=== PATIENT | female | born 1940 | race Two or more races ===

== ENCOUNTER → 2021-12-09 | Outpatient (CLI) | payer OTHER ==
[2021-12-09 11:59] LABS: Basophils # (auto) 0 10 ^3/uL (0-0.2); Basophils % (auto) 0.4 % (0.0-2.0); Eosinophils # (auto) 0.1 10 ^3/uL (0-0.8); Eosinophils % (auto) 1.1 % (0.0-7.0); Hematocrit 43.3 % (36.0-46.0); Lymphocytes % (auto) 23.1 % (10.0-50.0); Mean Corpuscular Hemoglobin 29.1 pg (28.0-32.0); Mean Corpuscular Hgb Conc. 32.3 g/dL (32.0-36.0); Mean Corpuscular Volume 90.1 fL (80.0-100.0); Monocytes # (auto) 0.6 10 ^3/uL (0-1.3); Monocytes % (auto) 6.9 % (0.0-12.0); Neutrophils # (auto) 5.8 10 ^3/uL (1.6-8.6); Neutrophils % (auto) 68.5 % (37.0-80.0); Red Cell Distribution Width 14.5 % (11.8-14.3); White Blood Cell 8.5 10^3/uL (4.4-10.8)
[2021-12-09 12:14] LABS: Urine Bacteria FEW /hpf (None Seen); Urine Blood Negative /uL (Negative); Urine Specific Gravity 1.017 (1.001-1.035); Urine WBC 8 /hpf (0 - 5)
[2021-12-09 13:51] LABS: Cholesterol 159 mg/dL (< 200); HDL Cholesterol 61 mg/dL (40-59); LDL Cholesterol 96 mg/dL (< 100); Triglycerides 68 mg/dL (< 150)
== END | disposition home or self-care (01) ==
LOC: LAB 11:41
PROVIDERS: ATTEND Internal Medicine
DX: E11.42 Type 2 diabetes mellitus with diabetic polyneuropathy (principal); E55.9 Vitamin D deficiency, unspecified; E78.5 Hyperlipidemia, unspecified
CPT/HCPCS: 36415; 80061; 81001; 82306; 83036; 84439; 84443; 85025

== ENCOUNTER → 2022-03-14 | Outpatient (CLI) | payer OTHER ==
[2022-03-14 13:09] LABS: Potassium 3.9 mmol/L (3.5-5.1)
[2022-03-14 13:19] LABS: Albumin 3.5 g/dL (3.4-5.0); BUN/Creatinine Ratio 23.8; Bilirubin, Total 0.6 mg/dL (0.2-1.0); Calcium 9.1 mg/dL (8.5-10.1); Total Protein 7.1 g/dL (6.4-8.2)
[2022-03-14 15:20] LABS: Urine Bacteria NONE SEEN /hpf (None Seen); Urine Blood Negative /uL (Negative); Urine Mucus FEW (None Seen); Urine Specific Gravity 1.019 (1.001-1.035); Urine WBC 2 /hpf (0 - 5)
== END | disposition home or self-care (01) ==
LOC: LAB 10:21
PROVIDERS: ATTEND Internal Medicine
DX: E11.22 Type 2 diabetes mellitus with diabetic chronic kidney disease (principal); N18.9 Chronic kidney disease, unspecified
CPT/HCPCS: 36415; 80053; 81001; 83036

== ENCOUNTER 2022-05-27 13:14 | Day surgery (SDC) | payer OTHER ==
[2022-05-25 11:51] LABS: Basophils # (auto) 0 10 ^3/uL (0-0.2); Basophils % (auto) 0.7 % (0.0-2.0); Eosinophils # (auto) 0.2 10 ^3/uL (0-0.8); Eosinophils % (auto) 2.3 % (0.0-7.0); Hemoglobin 14.1 g/dL (12.2-16.2); Mean Corpuscular Hemoglobin 29.3 pg (28.0-32.0); Mean Corpuscular Hgb Conc. 32.9 g/dL (32.0-36.0); Mean Corpuscular Volume 88.9 fL (80.0-100.0); Monocytes # (auto) 0.5 10 ^3/uL (0-1.3); Monocytes % (auto) 6.9 % (0.0-12.0); Neutrophils # (auto) 3.9 10 ^3/uL (1.6-8.6); Neutrophils % (auto) 59.1 % (37.0-80.0); Red Blood Cells 4.83 10^6/uL (4.0-5.20); Red Cell Distribution Width 12.8 % (11.8-14.3); White Blood Cell 6.5 10^3/uL (4.4-10.8)
[2022-05-25 12:05] LABS: INR 1.03 (0.9-1.15)
[2022-05-25 12:38] LABS: Albumin 3.8 g/dL (3.4-5.0); Calcium 8.7 mg/dL (8.5-10.1); Potassium 3.5 mmol/L (3.5-5.1)
[2022-05-25 12:42] LABS: Bilirubin, Total 0.6 mg/dL (0.2-1.0); Total Protein 7.4 g/dL (6.4-8.2)
[~2022-05-27] VITALS: Ht 170.2 cm; Wt 99.8 kg
[~2022-05-27 13:14] MED LIST: ATO40T PO; LEVO25TA49 PO; LISI2.5T47 PO; MET50T PO
[2022-05-27] MEDS: MIDAZOLAM HCL 2MG/2ML 2ml VIAL (1mg/ml) ONE ×2 (15:26→15:29)
[2022-05-27] MEDS: diphenhdrAMINE HCL 50 MG/1 ML VL ONE ×2 (15:26→15:32)
[2022-05-27] MEDS: fentaNYL CITRATE 100 MCG/2 ML VL ONE ×2 (15:26→15:29)
[2022-05-27] MEDS ORDERED: METOPROLOL TARTRATE 1MG/1ML-5ML VIAL IV ONE ×2 (16:45→16:47)
[2022-05-27 17:08] VITALS: BP 159/76
== END 2022-05-27 17:38 | disposition home or self-care (01) ==
LOC: GI 13:14
PROVIDERS: ATTEND Internal Medicine Gastroenterology
DX: R19.4 Change in bowel habit (principal); K64.0 First degree hemorrhoids; K62.1 Rectal polyp; Z86.010 Personal history of colon polyps; I10 Essential (primary) hypertension; E11.51 Type 2 diabetes mellitus with diabetic peripheral angiopathy without gangrene; E11.40 Type 2 diabetes mellitus with diabetic neuropathy, unspecified; E78.5 Hyperlipidemia, unspecified; Z90.710 Acquired absence of both cervix and uterus; Z98.890 Other specified postprocedural states; Z79.899 Other long term (current) drug therapy; Z79.84 Long term (current) use of oral hypoglycemic drugs; Z20.822 Contact with and (suspected) exposure to COVID-19
CPT/HCPCS: 36415; 45380; 80053; 82962; 85025; 85610; 85730; 88305; J1200; J2250; J3010; J7030; U0003; 99152

== ENCOUNTER → 2022-12-05 | Outpatient (CLI) | payer OTHER | END | disposition home or self-care (01) | LOC: XYW 14:42 | PROVIDERS: ATTEND Internal Medicine | DX: I08.1 Rheumatic disorders of both mitral and tricuspid valves (principal); R00.2 Palpitations; R07.9 Chest pain, unspecified | CPT/HCPCS: 93306 ==

== ENCOUNTER → 2024-01-22 | Outpatient (CLI) | payer OTHER ==
[~2024-01-22] MED LIST changes: +AMLO1TAB21; -ATO40T PO; +ATOR-507 PO; +LEVO25TA2 PO; -LEVO25TA49 PO; +LEVO25TA9; +LOPRESSOR; +PREMARIN; +SIMV5TAB14
[2024-01-22 11:55] LABS: Chloride 111 mmol/L (98-107); Potassium 3.9 mmol/L (3.5-5.1); Sodium 144 mmol/L (136-145)
[2024-01-22 11:56] LABS: Anion Gap 5 (5-15); Calcium 9.7 mg/dL (8.7-10.4); Carbon Dioxide 28 mmol/L (20-31)
[2024-01-22 12:01] LABS: Blood Urea Nitrogen 20 mg/dL (9-23); Glucose 106 mg/dL (74-106)
== END | disposition home or self-care (01) ==
LOC: LAB 11:32
PROVIDERS: ATTEND Internal Medicine
DX: I12.9 Hypertensive chronic kidney disease with stage 1 through stage 4 chronic kidney disease, or unspecified chronic kidney disease (principal); E11.22 Type 2 diabetes mellitus with diabetic chronic kidney disease; N18.9 Chronic kidney disease, unspecified; E03.9 Hypothyroidism, unspecified; E78.5 Hyperlipidemia, unspecified
CPT/HCPCS: 36415; 80048

== ENCOUNTER → 2024-01-24 | Outpatient (CLI) | payer OTHER ==
[~2024-01-24] MED LIST changes: +BUPIVACAINE HCL 0.25% P/F 10 ML VIAL ONE; +IOHEXOL 300 MG/ML 100ML BOTTLE IJ ONE; +LIDOCAINE 2%HCL (LOCAL ANESTH.) INJ 10ml MDV ONE; +methylPREDNISolone ACETATE 80 MG/ML VL ONE
== END | disposition home or self-care (01) ==
LOC: XYW 10:37
PROVIDERS: ATTEND Orthopaedic Surgery Adult Reconstructive Orthopaedic Surgery
DX: M70.72 Other bursitis of hip, left hip (principal)
CPT/HCPCS: 20610; 77002; J1010; J2003; J3490; Q9967; 73501

== ENCOUNTER 2024-03-25 09:33 | Inpatient (IN) | payer OTHER ==
[~2024-03-25] VITALS: Ht 170.2 cm; Wt 101.0 kg
[~2024-03-25 09:33] MED LIST changes: -BUPIVACAINE HCL 0.25% P/F 10 ML VIAL ONE; -IOHEXOL 300 MG/ML 100ML BOTTLE IJ ONE; -LIDOCAINE 2%HCL (LOCAL ANESTH.) INJ 10ml MDV ONE; -methylPREDNISolone ACETATE 80 MG/ML VL ONE
[2024-03-25] MEDS: cefTRIAXone 1GM/50ML D5W 50 ML IV ONE (11:57)
[2024-03-25] MEDS: SODIUM CHLORIDE 0.9% 500 ML IV ONE (11:57)
[2024-03-25 12:03] LABS: Basophils # (auto) 0 10 ^3/uL (0-0.2); Basophils % (auto) 0.3 % (0.0-2.0); Eosinophils # (auto) 0.2 10 ^3/uL (0-0.8); Eosinophils % (auto) 2.5 % (0.0-7.0); Hemoglobin 14.5 g/dL (12.2-16.2); Lymphocytes % (auto) 26.2 % (10.0-50.0); Mean Corpuscular Hemoglobin 30.2 pg (28.0-32.0); Mean Corpuscular Hgb Conc. 32.9 g/dL (32.0-36.0); Mean Corpuscular Volume 91.9 fL (80.0-100.0); Monocytes # (auto) 0.4 10 ^3/uL (0-1.3); Monocytes % (auto) 4.5 % (0.0-12.0); Neutrophils # (auto) 5.1 10 ^3/uL (1.6-8.6); Neutrophils % (auto) 66.5 % (37.0-80.0); Platelet Count (auto) 205 10^3/uL (140-450); Red Blood Cells 4.79 10^6/uL (4.0-5.20); Red Cell Distribution Width 13.2 % (11.8-14.3); White Blood Cell 7.8 10^3/uL (4.4-10.8)
[2024-03-25 12:04] LABS: Urine Bacteria FEW /hpf (None Seen); Urine Blood Negative /uL (Negative); Urine Clarity Clear (Clear); Urine Color Yellow (Yellow); Urine Protein, UAD Negative (Negative); Urine Squamous Epithelial Cell FEW /hpf (<5); Urine Urobilinogen Normal (Negative); Urine WBC 3 /hpf (0 - 5)
--- NOTE | 2024-03-25 12:10 | ED.PDOC ---
Musculoskeletal HPI Comments 83 year old female presents to the ED with chief complaint of pre-op for ankle fracture. Patient reports that she had fractured her left ankle a couple weeks ago, following up with Dr. Byrd for treatment. Patient relays that she was advised by him to come to the ED today for admission pre-op of her ankle surgery to be performed tomorrow. Patient denies any additional symptoms at this time. Chief Complaint: Lower Extremity Time Seen by MD: 12:06 Primary Care Provider: CATERINA Greenwood Notes: Nurses Notes, Medications, Allergies Allergies: Coded Allergies: Diclofenac (Unverified Adverse Reaction, Unknown, 10/16/14) Isopropyl Alcohol (Unverified Adverse Reaction, Unknown, 10/16/14) Propylene Glycol (Unverified Adverse Reaction, Unknown, 10/16/14) Home Meds Reported Medications Simvastatin (Simvastatin) 20 Mg Tab, 20 MG PO QPM, TAB 10/16/14 Metoprolol Tartrate (Metoprolol Tartrate) 100 Mg Tab, 100 MG PO HS, TAB 10/16/14 Ibuprofen (Ibuprofen) 600 Mg Tab, 600 MG PO BIDP PRN for MODERATE PAIN, MG 10/16/14 Levothyroxine Sodium (Levothyroxine Sodium) 100 Mcg Tab, 100 MCG PO QAM for 30 Days, MCG 10/16/14 Information Source: Patient Mode of Arrival: Wheelchair Location: Left Extremity Location: Ankle Timing: Weeks Prehospital treatment: None Severity: Moderate Able to Move Extremity: No Bear Weight: Limited Pain: Mild Past Medical History PAST MEDICAL HISTORY: High Lipids, HTN, Thyroid Surgical History: Hysterectomy Surgical History (Other): Partial thyroidectomy, Lumpectomy [employer] History: Denies all [employer] Hx Family History Family History: Reviewed,noncontributory to illness Social History Smoker: Non-Smoker Alcohol: Denies ETOH Use Drugs: Denies Drug Use Lives In: Home Constitutional: denies: chills, diaphoresis, fatigue, fever, malaise, sweats, weakness, others EENTM: denies: blurred vision, double vision, ear bleeding, ear discharge, ear drainage, ear pain, ear ringing, eye pain, eye redness, hearing loss, mouth pain, mouth swelling, nasal discharge, nose bleeding, nose congestion, nose pain, photophobia, tearing, throat pain, throat swelling, voice changes, others Respiratory: denies: cough, hemoptysis, orthopnea, SOB at rest, shortness of b reath, SOB with excertion, stridor, wheezing, others Cardiovascular: denies: chest pain, dizzy spells, diaphoresis, Dyspnea on exertion, edema, irregular heart beat, left arm pain, lightheadedness, palpitations, PND, syncope, others Gastrointestinal: denies: abdomen distended, abdominal pain, blood streaked bowels, constipated, diarrhea, dysphagia, difficulty swallowing, hematemesis, melena, nausea, poor appetite, poor fluid intake, rectal bleeding, rectal pain, vomiting, others Genitourinary: denies: abnormal vagina bleeding, burning, dyspareunia, dysuria, flank pain, frequency, hematuria, incontinence, pain, , vagina discharge, urgency, others Neurological: denies: dizziness, fainting, headache, left sided numbness, left sided weakness, numbness, paresthesia, pre-existing deficit, right sided numbness, right sided weakness, seizure, speech problems, tingling, tremors, weakness, others Musculoskeletal: reports: others (Left ankle fracture); denies: back pain, gout, joint pain, joint swelling, muscle pain, muscle stiffness, neck pain Integumetry: denies: bruises, change in color, change in hair/nails, dryness, laceration, lesions, lumps, rash, wounds, others Allergic/Immunocompromised: denies: Difficulty Healing, Frequent Infections, Hives, Itching, others Hematologic/Lymphatic: denies: anemia, blood clots, easy bleeding, easy bruising, swollen glands, others Endocrine: denies: excessive hunger, excessive sweating, excessive thirst, excessive urination, flushing, intolerance to cold, intolerance to heat, unexplained weight gain, unexplained weight loss, others Psychiatric: denies: anxiety, bipolar disorder, depression, hopeless, panic disorder, schizophrenia, sleepless, suicidal, others All Other Systems: Reviewed and Negative Physical Exam General Appearance: No Apparent Distress, Obese HEENT: Other (Moist mucous membranes) Neck: Full Range of Motion, Normal Inspection Respiratory: Lungs Clear, No Accessory Muscle Use, No Respiratory Distress, Normal Breath Sounds Cardiovascular: No Edema, No JVD, Regular Rate/Rhythm Breast Exam: Deferred Gastrointestinal: Non Tender, Soft Genitalia: Deferred Pelvic: Deferred Rectal: Deferred Extremities: Other (Ortho boot in place left lower extremity) Neurologic: Alert (Oriented x4), Other (Moves all extremities) Cerebellar Function: NOT DONE Reflexes: NOT DONE Skin: Dry, Normal Color, Warm Lymphatic: NOT DONE Was a procedure done? Was a procedure done?: No Differential Diagnosis EXT Differential Diagnosis: Fracture Other Differential Diagnosis Electrolyte imbalance, cardiac disease, renal disease, among others X-Ray, Labs, Meds, VS Vital Signs Date Time Temp Pulse Resp B/P (MAP) Pulse Ox O2 Delivery O2 Flow Rate FiO2 03/25/24 09:56 98.6 82 18 142/68 (92) 95 Lab Test 03/25/24 12:00 03/25/24 11:17 Range/Units White Blood Count 7.8 4.4-10.8 10^3/uL Red Blood Count 4.79 4.0-5.20 10^6/uL Hemoglobin 14.5 12.2-16.2 g/dL Hematocrit 44.0 36.0-46.0 % Mean Corpuscular Volume 91.9 80.0-100.0 fL Mean Corpuscular Hemoglobin 30.2 28.0-32.0 pg Mean Corpuscular Hemoglobin Concent 32.9 32.0-36.0 g/dL Red Cell Distribution Width 13.2 11.8-14.3 % Platelet Count 205 140-450 10^3/uL Mean Platelet Volume 9.2 6.9-10.8 fL Neutrophils (%) (Auto) 66.5 37.0-80.0 % Lymphocytes (%) (Auto) 26.2 10.0-50.0 % Monocytes (%) (Auto) 4.5 0.0-12.0 % Eosinophils (%) (Auto) 2.5 0.0-7.0 % Basophils (%) (Auto) 0.3 0.0-2.0 % Neutrophils # (Auto) 5.1 1.6-8.6 10 ^3/uL Lymphocytes # (Auto) 2.0 0.4-5.4 10 ^3/uL Monocytes # (Auto) 0.4 0-1.3 10 ^3/uL Eosinophils # (Auto) 0.2 0-0.8 10 ^3/uL Basophils # (Auto) 0 0-0.2 10 ^3/uL Nucleated Red Blood Cells 0.0 % Prothrombin Time 11.5 9.3-11.8 sec Prothrombin Time INR 1.09 0.9-1.15 Activated Partial Thromboplast Time 28.5 24.5-34.5 SEC Sodium Level 144 136-145 mmol/L Potassium Level 3.8 3.5-5.1 mmol/L Chloride Level 109 H 98-107 mmol/L Carbon Dioxide Level 28 20-31 mmol/L Anion Gap 7 5-15 Blood Urea Nitrogen 10 9-23 mg/dL Creatinine 0.84 0.550-1.02 mg/dL Glomerular Filtration Rate Calc 69 >90 mL/min BUN/Creatinine Ratio 11.9 10.0-20.0 Serum Glucose 129 H 74-106 mg/dL Calcium Level 10.0 8.7-10.4 mg/dL Total Bilirubin 0.6 0.2-1.0 mg/dL Aspartate Amino Transferase (AST) 27 13-40 U/L Alanine Aminotransferase (ALT) 25 7-40 U/L Alkaline Phosphatase 104 46-116 U/L Total Protein 7.5 5.7-8.2 g/dL Albumin 4.7 3.2-4.8 g/dL Urine Color Yellow Yellow Urine Clarity Clear Clear Urine pH 5.0 5.0-9.0 Urine Specific [place] 1.020 1.001-1.035 Urine Protein Negative Negative Urine Ketones Trace Negative Urine Blood Negative Negative /uL Urine Nitrite Negative Negative Urine Bilirubin Negative Negative Urine Urobilinogen Normal Negative mg/dL Urine Leukocyte Esterase 2+ Negative /uL Urine RBC 1 0 - 4 /hpf Urine WBC 3 0 - 5 /hpf Urine Squamous Epithelial Cells Few <5 /hpf Urine Bacteria Few H None Seen /hpf Urine Glucose Normal Normal mg/dL Current Medications Medications (Trade) Dose Ordered Sig/Alvarez Route Start Time Stop Time Status Last Admin Sodium Chloride 500 ml @ 500 mls/hr Q1H ONCE IV 03/25/24 11:00 03/25/24 14:24 DC 03/25/24 11:57 Ceftriaxone Sodium 50 ml @ 100 mls/hr ONCE ONCE IV 03/25/24 11:00 03/25/24 14:24 DC 03/25/24 11:57 PROCEDURE(s): CXRP - CHEST PORTABLE REASON: pre-op ORDER NUMBER(s): [id number], ACCESSION NUMBER(s): [id number] Chest x-ray Technique AP portable HISTORY: pre-op Comparison: None FINDINGS: Heart size is normal. Aorta is tortuous. No infiltrates or effusions. IMPRESSION: 1. No acute cardiopulmonary pathology X-Ray, Labs, Meds, VS Comment 83-year-old female with a history of hypertension, hyperlipidemia, diabetes and thyroid disease presenting for preop clearance and admission for left lower extremity surgery tomorrow. Vitals remarkable for BP 142/68 Exam remarkable for left lower extremity orthopedic boot in place. Left lower extremity appears neurovascularly intact. Rhythm strip independently interpreted by me: Sinus rhythm, rate 82, no ectopy. Chest x-ray unremarkable CBC, CMP, coag panel and urinalysis unremarkable for any abnormality of acute significance Cardiology consultation placed for preop clearance. Patient did not require any acute treatment in the ED. Plan is to admit the patient for ongoing preop clearance for surgery tomorrow. Time of 1ST Reevaluation: 13:06 Reevaluation 1ST: Unchanged Patient Education/Counseling: Diagnosis, Treatment Family Education/Counseling: No Family Present Departure 1 Departure Time of Disposition: 14:21 Impression: Primary Impression: Preoperative clearance Disposition: ADMITTED INPATIENT Admit to: Med Surg Condition: Stable Critical Care Note Critical Care Time?: No Stability Stability form required: No Heart Score Heart Score: Heart Score Response (Comments) Value History N/A 0 EKG N/A 0 Age N/A 0 Risk Factors N/A 0 Troponin N/A 0 Total 0 I personally scribed for BREONNA ARELLANO MD ([email or web address]) on 03/25/24 at 12:10. Electronically submitted by Avinash Bo ([email or web address]). BREONNA ARELLANO MD Mar 25, 2024 12:10
[2024-03-25 12:17] LABS: INR 1.09 (0.9-1.15); Partial Thromboplastin Time 28.5 SEC (24.5-34.5); Prothrombin Time 11.5 sec (9.3-11.8)
[2024-03-25 12:22] LABS: Alanine Aminotransferase 25 U/L (7-40); Albumin 4.7 g/dL (3.2-4.8); Alkaline Phosphatase 104 U/L (46-116); Anion Gap 7 (5-15); Aspartate Aminotransferase 27 U/L (13-40); BUN/Creatinine Ratio 11.9 (10.0-20.0); Blood Urea Nitrogen 10 mg/dL (9-23); Carbon Dioxide 28 mmol/L (20-31); Potassium 3.8 mmol/L (3.5-5.1); Sodium 144 mmol/L (136-145)
[2024-03-25 12:23] LABS: Bilirubin, Total 0.6 mg/dL (0.2-1.0); Total Protein 7.5 g/dL (5.7-8.2)
[2024-03-25 12:26] LABS: Chloride 109 mmol/L (98-107); Glucose 129 mg/dL (74-106)
--- NOTE | 2024-03-25 14:04 | DVH ---
Chest x-ray Technique AP portable HISTORY: pre-op Comparison: None FINDINGS: Heart size is normal. Aorta is tortuous. No infiltrates or effusions. IMPRESSION: 1. No acute cardiopulmonary pathology
[2024-03-25] MEDS ORDERED: MORPHINE SULFATE INJ 2 MG/ml SYRG IV PRN (14:30)
[2024-03-25] MEDS ORDERED: DOCUSATE SOD 100 MG CAP PO PRN (14:30)
[2024-03-25] MEDS ORDERED: HYDROcodone-ACET 5/325MG TAB PO PRN (14:30)
[2024-03-25] MEDS ORDERED: DEXTROSE (50%) 50ML SYRG IV PRN (14:30)
[2024-03-25] MEDS ORDERED: ACETAMINOPHEN 325 MG TAB PO PRN (14:30)
[2024-03-25] MEDS ORDERED: MAALOX PLUS or MAALOX 30 ML PO PRN (14:30)
--- NOTE | 2024-03-25 14:33 | DVHHP2 ---
History of Present Illness Reason for Visit: leg pain History of Present Illness A 83-year-old morbidly obese patient with hypertension hyperlipidemia thyroid disorder comes to the ED with complaints of pain patient has a left ankle fracture and was told to come here for preop evaluation and admission for the management of ankle surgery that is supposed to be performed inpatient tomorrow patient will be admitted for further evaluation and management in preop surgery Renal/: UTI Review of Systems Constitutional: Yes: Weakness; No: Fever, Chills, Sweats, Malaise, Other Eyes: No: Pain, Vision change, Conjunctivae inflammation, Eyelid inflammation, Other, Redness ENT: No: Ear pain, Ear discharge, Nose pain, Nose discharge, Nose congestion, Mouth pain, Mouth swelling, Throat pain, Throat swelling, Other Respiratory: No: Cough, Dry, Shortness of breath, SOB with excertion, Wheezing, Hemoptysis, Pleuritic Pain, Sputum, Wheezing, Other Cardiovascular: No: Chest Pain, Palpitations, Orthopnea, Paroxysmal Noc. Dyspnea, Edema, Lt Headedness, Other Gastrointestinal: No: Nausea, Vomiting, Abdominal Pain, Diarrhea, Constipation, Melena, Hematochezia, Other Genitourinary: No Dysuria, No Frequency, No Incontinence, No Hematuria, No Retention, No Other Musculoskeletal: leg pain; No: other, neck pain, shoulder pain, arm pain, back pain, hand pain, foot pain Skin: No: Rash, Lesions, Jaundice, Bruising, Other Neurological: No: Weakness, Numbness, Incoordination, Change in speech, Confusion, Seizures, Other Allergies: Coded Allergies: Diclofenac (Unverified Adverse Reaction, Unknown, 10/16/14) Isopropyl Alcohol (Unverified Adverse Reaction, Unknown, 10/16/14) Propylene Glycol (Unverified Adverse Reaction, Unknown, 10/16/14) Exam Vital Signs Vital Signs Date Time Temp Pulse Resp B/P (MAP) Pulse Ox O2 Delivery O2 Flow Rate FiO2 03/25/24 09:56 98.6 82 18 142/68 (92) 95 General Appearance: Alert, Oriented X3, moderate distress HEENT: Atraumatic, PERRLA Respiratory: Clear to auscultation, Normal air movement Cardiovascular: Regular rate, Normal S1, Normal S2 Abdominal: Normal bowel sounds, Soft, No tenderness Extremities: No clubbing, No cyanosis, No edema Skin: No rashes, No breakdown, No significant lesion Neuro: Normal gait, Normal speech, Strength at 5/5 X4 ext Psych/Mental Status: Mood NL Labs/Xrays Labs Test 03/25/24 12:00 03/25/24 11:17 Range/Units White Blood Count 7.8 4.4-10.8 10^3/uL Red Blood Count 4.79 4.0-5.20 10^6/uL Hemoglobin 14.5 12.2-16.2 g/dL Hematocrit 44.0 36.0-46.0 % Mean Corpuscular Volume 91.9 80.0-100.0 fL Mean Corpuscular Hemoglobin 30.2 28.0-32.0 pg Mean Corpuscular Hemoglobin Concent 32.9 32.0-36.0 g/dL Red Cell Distribution Width 13.2 11.8-14.3 % Platelet Count 205 140-450 10^3/uL Mean Platelet Volume 9.2 6.9-10.8 fL Neutrophils (%) (Auto) 66.5 37.0-80.0 % Lymphocytes (%) (Auto) 26.2 10.0-50.0 % Monocytes (%) (Auto) 4.5 0.0-12.0 % Eosinophils (%) (Auto) 2.5 0.0-7.0 % Basophils (%) (Auto) 0.3 0.0-2.0 % Neutrophils # (Auto) 5.1 1.6-8.6 10 ^3/uL Lymphocytes # (Auto) 2.0 0.4-5.4 10 ^3/uL Monocytes # (Auto) 0.4 0-1.3 10 ^3/uL Eosinophils # (Auto) 0.2 0-0.8 10 ^3/uL Basophils # (Auto) 0 0-0.2 10 ^3/uL Nucleated Red Blood Cells 0.0 % Prothrombin Time 11.5 9.3-11.8 sec Prothrombin Time INR 1.09 0.9-1.15 Activated Partial Thromboplast Time 28.5 24.5-34.5 SEC Sodium Level 144 136-145 mmol/L Potassium Level 3.8 3.5-5.1 mmol/L Chloride Level 109 H 98-107 mmol/L Carbon Dioxide Level 28 20-31 mmol/L Anion Gap 7 5-15 Blood Urea Nitrogen 10 9-23 mg/dL Creatinine 0.84 0.550-1.02 mg/dL Glomerular Filtration Rate Calc 69 >90 mL/min BUN/Creatinine Ratio 11.9 10.0-20.0 Serum Glucose 129 H 74-106 mg/dL Calcium Level 10.0 8.7-10.4 mg/dL Total Bilirubin 0.6 0.2-1.0 mg/dL Aspartate Amino Transferase (AST) 27 13-40 U/L Alanine Aminotransferase (ALT) 25 7-40 U/L Alkaline Phosphatase 104 46-116 U/L Total Protein 7.5 5.7-8.2 g/dL Albumin 4.7 3.2-4.8 g/dL Urine Color Yellow Yellow Urine Clarity Clear Clear Urine pH 5.0 5.0-9.0 Urine Specific [place] 1.020 1.001-1.035 Urine Protein Negative Negative Urine Ketones Trace Negative Urine Blood Negative Negative /uL Urine Nitrite Negative Negative Urine Bilirubin Negative Negative Urine Urobilinogen Normal Negative mg/dL Urine Leukocyte Esterase 2+ Negative /uL Urine RBC 1 0 - 4 /hpf Urine WBC 3 0 - 5 /hpf Urine Squamous Epithelial Cells Few <5 /hpf Urine Bacteria Few H None Seen /hpf Urine Glucose Normal Normal mg/dL Assessment/Plan Assessment/Plan Admit to [facility] Left ankle fracture NPO after midnight P.r.n. pain medications History of hypertension hyperlipidemia and thyroid disorder continue with home medications Ortho evaluation IV antibiotics for UTI Plan discussed with: Patient Problem List: (1) Preoperative clearance Date of Service: Mar 25, 2024 Billing Provider: KEVEN PULLIAM MD Common Visit Codes: [id number] INP/OBS CARE (HIGH) KEVEN PULLIAM MD Mar 25, 2024 14:33
--- NOTE | 2024-03-25 15:46 | DVH ---
CLINICAL INDICATION: eval fx TECHNIQUE: XY L ANKLE 2 VIEW XRAY Comparison: None FINDINGS/IMPRESSION: : Mildly displaced fracture of the distal fibula. Diffuse soft-tissue swelling and edema.
[2024-03-25] MEDS ORDERED: PATIENTS OWN MEDICATION (Simvastatin 20 MG) PO SCH (18:00)
[2024-03-25 19:40] VITALS: BP 146/67; PULSE 59; RESP 20; TEMP 98.1; O2SAT 98
[2024-03-25] MEDS: ACCU-CHEK COMFORT CURVE STRIP VI SCH (20:00)
[2024-03-25] MEDS: InsuLIN REG 1unit/0.01ml Soln (100units/ml) SC SCH (20:00)
[2024-03-25] MEDS: ATORVASTATIN 20 MG TAB PO SCH (22:00)
[2024-03-25] MEDS: PATIENTS OWN MEDICATION (Metoprolol Tartrate 100 MG) PO SCH (22:00)
[2024-03-26] VITALS (33 sets, daily range): BP systolic 74–152; BP diastolic 37–82; PULSE 57–143; RESP 8–21; TEMP 97.8–98.6; O2SAT 94–99
[2024-03-26] MEDS: SODIUM CHLORIDE 0.9% 1,000 ML IV SCH (04:17)
[2024-03-26] MEDS: LEVOTHYROXINE SODIUM 100 MCG TAB PO SCH (06:08)
[2024-03-26 06:49] LABS: Basophils # (auto) 0 10 ^3/uL (0-0.2); Basophils % (auto) 0.5 % (0.0-2.0); Eosinophils # (auto) 0.2 10 ^3/uL (0-0.8); Eosinophils % (auto) 2.9 % (0.0-7.0); Hematocrit 36.8 % (36.0-46.0); Hemoglobin 12.4 g/dL (12.2-16.2); Lymphocytes # (auto) 2.1 10 ^3/uL (0.4-5.4); Mean Corpuscular Hemoglobin 30.6 pg (28.0-32.0); Mean Corpuscular Hgb Conc. 33.8 g/dL (32.0-36.0); Mean Corpuscular Volume 90.5 fL (80.0-100.0); Monocytes # (auto) 0.5 10 ^3/uL (0-1.3); Monocytes % (auto) 6.9 % (0.0-12.0); Neutrophils % (auto) 62.7 % (37.0-80.0); Platelet Count (auto) 182 10^3/uL (140-450); Red Blood Cells 4.06 10^6/uL (4.0-5.20); Red Cell Distribution Width 13.1 % (11.8-14.3); White Blood Cell 7.9 10^3/uL (4.4-10.8)
[2024-03-26 06:56] LABS: Calcium 9.4 mg/dL (8.7-10.4); Potassium 3.9 mmol/L (3.5-5.1); Sodium 145 mmol/L (136-145)
[2024-03-26 06:58] LABS: Anion Gap 8 (5-15); Carbon Dioxide 27 mmol/L (20-31)
[2024-03-26 07:03] LABS: BUN/Creatinine Ratio 17.3 (10.0-20.0); Blood Urea Nitrogen 13 mg/dL (9-23)
[2024-03-26 07:04] LABS: Chloride 110 mmol/L (98-107); Glucose 107 mg/dL (74-106)
[2024-03-26] MEDS: ROPIVACAINE 0.5% (5MG/ML) 20ML AMPULE IJ ONE (09:40)
[2024-03-26] MEDS ORDERED: fentaNYL CITRATE 100 MCG/2 ML VL ONE (09:41)
[2024-03-26] MEDS ORDERED: MIDAZOLAM HCL 2MG/2ML 2ml VIAL (1mg/ml) ONE (09:42)
[2024-03-26] MEDS ORDERED: PROPOFOL 10 MG/ML 20 ML IV ONE (09:44)
[2024-03-26] MEDS: ceFAZolin 2 GM/D5W100ml 100 ML IV ONE (09:45)
[2024-03-26] MEDS ORDERED: PHENYLEPHRINE HCL 10 MG/ML VL ONE (09:46)
--- NOTE | 2024-03-26 09:55 | DVHHP2 ---
History Chief Complaint: 83F, left ankle pain, swelling , inability to bear weight Present Illness(Onset/Duration 03/02/24, slip fall in bathroom, painleft ankle, inability to bear weight, presentation to [facility] ER, XR consistent with left ankle bimalleolar fracture Past Surgical History hysterectomy left eye surgery, left breast lumpectomy Medications lisinopril, chol meds, metoprolol, levothyroxine Physical Exam Skin intact Chest and Lungs CTA B Heart RRR neg MRG Abdomen NBS ND NT Extremities Left ankle moderate swelling, NVI, ROM stabiliolty not assessed due to fracture Vital Signs Vital Signs Date Time Temp Pulse Resp B/P (MAP) Pulse Ox O2 Delivery O2 Flow Rate FiO2 03/26/24 08:30 97.9 71 19 112/65 (81) 97 97.9 03/26/24 01:26 Room Air* 0 21 Impressions/Description Left ankle bimalleolar fracture dislocation Plan pre op clearance by anesthsiology surgery , ORIF left ankle bimalleolar fracture ANNA HUTCHINS MD Mar 26, 2024 09:55
[2024-03-26] MEDS ORDERED: METOPROLOL TARTRATE 50 MG TAB PO SCH ×2 (10:00)
[2024-03-26] MEDS: cefTRIAXone 1GM/50ML D5W 50 ML IV SCH (10:00)
[2024-03-26] MEDS: NOREPINEPHRINE 8 MG/250ML KIT 250 ML IV ONE (10:42)
--- NOTE | 2024-03-26 11:11 | DVHINCON2 ---
Date Seen: Mar 26, 2024 Referring Physician MD Stephen Reason for Consultation Hemodynamic instability History of Present Illness This is an 83-year-old female who presented to the emergency room with a chief complaint of left ankle pain. At time of assessment, the patient was found chacho wsy and somnolent. Information obtained from records which indicate the patient fracture her left ankle approximately two weeks ago and presented to this facility for repair. Preoperatively she underwent multiple 12-lead electrocardiograms revealing a sinus rhythm suggestive of left ventricular hypertrophy and left atrial enlargement. She also underwent a chest x-ray revealing no acute cardiopulmonary pathology. Intraoperatively she received spinal anesthesia with subsequent hemodynamic instability including hypotension and tachycardia with Cardiology called STAT for consultation. Upon arrival, she was found max out on a Levophed drip with stable MAP and an atrial fibrillation rhythm with rapid ventricular rate up to the 150s bpm. Significant medical h istory includes hypertension, dyslipidemia, thyroid disease, and obesity. Past Medical History Past medical history reviewed. No other significant than mentioned above. Past Surgical History Hysterectomy Unspecified lumpectomy Partial thyroidectomy Left eye Family History Family history reviewed. Social History Denies the use of illicit drugs, alcohol, or tobacco use. Home Meds Reported Medications Atorvastatin Calcium (Lipitor) 40 Mg Tab, 40 MG PO DAILY, TAB 05/26/22 Metoprolol Tartrate (LOPRESSOR TABLET) 50 Mg Tb, 50 MG PO BID, TAB 05/26/22 Lisinopril (Lisinopril) 2.5 Mg Tab, 2.5 MG PO DAILY, TAB 05/26/22 Levothyroxine Sodium (Synthroid) 25 Mcg Tab, 100 MCG PO DAILY, TAB 05/26/22 Amlodipine Besylate (Amlodipine Besylate) 2.5 Mg Tab 05/15/10 Simvastatin (Simvastatin) 5 Mg Tab 05/14/10 [Premarin] No Conflict Check 05/14/10 Levothyroxine Sodium (Levothroid) 25 Mcg Tab 05/14/10 [Lopressor] No Conflict Check 05/14/10 Home Meds Home medications reviewed. Current Medications Current Medications Medications (Trade) Dose Ordered Sig/Alvarez Route PRN Reason Start Time Stop Time Status Last Admin Levothyroxine Sodium (Synthroid Tablet) 100 mcg QAM PO 03/26/24 07:00 Patient Own Medication 100 mg HS PO 03/25/24 22:00 Patient Own Medication 20 mg QPM PO 03/25/24 18:00 UNV Ceftriaxone Sodium 50 ml @ 100 mls/hr DAILY IV 03/26/24 10:00 Diagnostic Test (Pha) (Accu-Chek Comfort Curve T) 1 strip IQ4HR 03/25/24 16:00 03/26/24 08:00 Insulin Human Regular (InsuLIN R) IQ4HR SC 03/25/24 16:00 Dextrose 50 ml UD PRN IV Blood Sugar LESS THAN 60 03/25/24 14:30 Sodium Chloride 1,000 ml @ 60 mls/hr [id number] IV 03/25/24 14:30 03/26/24 04:17 Al Hydrox/Mg Hydrox/Simethicone (Maalox Plus) 30 ml Q6HP PRN PO FOR STOMACH DISTRESS 03/25/24 14:30 Docusate Sodium (Colace Capsule) 100 mg BIDPRN PRN PO FOR CONSTIPATION 03/25/24 14:30 Acetaminophen (Tylenol Tablet) 650 mg Q6HP PRN PO PAIN SCALE 1-3 OR TEMP>100.4 03/25/24 14:30 Acetaminophen/ Hydrocodone Bitart ([place] 5/325MG Tab) 1 tab Q4HP PRN PO MODERATE PAIN (4-6 PAIN SCALE) 03/25/24 14:30 Ondansetron HCl (Zofran) 4 mg Q4HP PRN IV NAUSEA / VOMITING 03/25/24 14:30 Morphine Sulfate 2 mg Q4HPRN PRN IV SEVERE PAIN (7-10 PAIN SCALE) 03/25/24 14:30 Metoprolol Tartrate (Lopressor Tablet) 100 mg DAILY PO 03/26/24 10:00 Cancel Atorvastatin Calcium (Lipitor) 10 mg HS PO 03/25/24 22:00 Metoprolol Tartrate (Lopressor Tablet) 100 mg DAILY PO 03/26/24 10:00 Hold Review of Systems Constitutional: No symptom reported Ears, Nose, & Throat: No symptom reported Eyes: No symptom reported Neurological: No symptoms reported Pulmonary/Respiratory: No symptom reported Cardiovascular: No symptom reported Gastrointestinal: No symptom reported Genitourinary: No symptom reported Musculoskeletal: Left ankle pain Skin: No symptom reported Psychiatric: No symptom reported Endocrine: No symptom reported Hemotologic/Lymphatic: No symptom reported Vital Signs Vital Signs Date Time Temp Pulse Resp B/P (MAP) Pulse Ox O2 Delivery O2 Flow Rate FiO2 03/26/24 08:30 97.9 71 19 112/65 (81) 97 97.9 03/26/24 08:10 Room Air* 0 21 Physical Exam General Appearance: Drowsy, somnolent. Obese. In no acute distress Head Exam: Normal inspection Neck Exam: Normal inspection. Normal alignment Pulmonary/Respiratory: Clear bilateral breath sounds. O2 via simple mask Cardiovascular/Chest: Irregularly irregular rate and rhythm. AFib with RVR up to 150s bpm. No murmurs. No JVD. Peripheral Pulses: 2+ Radial (R). 2+ Radial (L). 2+ Pedal (R). 2+ Pedal (L) Abdominal Exam: Normal bowel sounds. Soft. Ankle Exam: Negative ankle edema Lower extremities: Negative lower extremity edema. Left ankle edema Neuro/Mental Status: Received recent spinal anesthesia. Drowsy, somnolent Thoughts/Psych: Unable to assess at this time Appearance: In no acute distress Skin Exam: Normal inspection. Normal color. Warm. Dry Labs/Diagnostic Data Labs Test 03/26/24 08:50 03/26/24 05:41 03/25/24 12:00 03/25/24 11:17 Range/Units POC Glucose 110 H 70-106 mg/dl White Blood Count 7.9 4.4-10.8 10^3/uL Red Blood Count 4.06 4.0-5.20 10^6/uL Hemoglobin 12.4 12.2-16.2 g/dL Hematocrit 36.8 # 36.0-46.0 % Mean Corpuscular Volume 90.5 80.0-100.0 fL Mean Corpuscular Hemoglobin 30.6 28.0-32.0 pg Mean Corpuscular Hemoglobin Concent 33.8 32.0-36.0 g/dL Red Cell Distribution Width 13.1 11.8-14.3 % Platelet Count 182 140-450 10^3/uL Mean Platelet Volume 9.4 6.9-10.8 fL Neutrophils (%) (Auto) 62.7 37.0-80.0 % Lymphocytes (%) (Auto) 27.0 10.0-50.0 % Monocytes (%) (Auto) 6.9 0.0-12.0 % Eosinophils (%) (Auto) 2.9 0.0-7.0 % Basophils (%) (Auto) 0.5 0.0-2.0 % Neutrophils # (Auto) 5.0 1.6-8.6 10 ^3/uL Lymphocytes # (Auto) 2.1 0.4-5.4 10 ^3/uL Monocytes # (Auto) 0.5 0-1.3 10 ^3/uL Eosinophils # (Auto) 0.2 0-0.8 10 ^3/uL Basophils # (Auto) 0 0-0.2 10 ^3/uL Nucleated Red Blood Cells 0.0 % Sodium Level 145 136-145 mmol/L Potassium Level 3.9 3.5-5.1 mmol/L Chloride Level 110 H 98-107 mmol/L Carbon Dioxide Level 27 20-31 mmol/L Anion Gap 8 5-15 Blood Urea Nitrogen 13 9-23 mg/dL Creatinine 0.75 0.550-1.02 mg/dL Glomerular Filtration Rate Calc 79 >90 mL/min BUN/Creatinine Ratio 17.3 10.0-20.0 Serum Glucose 107 H 74-106 mg/dL Calcium Level 9.4 8.7-10.4 mg/dL Prothrombin Time 11.5 9.3-11.8 sec Prothrombin Time INR 1.09 0.9-1.15 Activated Partial Thromboplast Time 28.5 24.5-34.5 SEC Total Bilirubin 0.6 0.2-1.0 mg/dL Aspartate Amino Transferase (AST) 27 13-40 U/L Alanine Aminotransferase (ALT) 25 7-40 U/L Alkaline Phosphatase 104 46-116 U/L Total Protein 7.5 5.7-8.2 g/dL Albumin 4.7 3.2-4.8 g/dL Urine Color Yellow Yellow Urine Clarity Clear Clear Urine pH 5.0 5.0-9.0 Urine Specific [place] 1.020 1.001-1.035 Urine Protein Negative Negative Urine Ketones Trace Negative Urine Blood Negative Negative /uL Urine Nitrite Negative Negative Urine Bilirubin Negative Negative Urine Urobilinogen Normal Negative mg/dL Urine Leukocyte Esterase 2+ Negative /uL Urine RBC 1 0 - 4 /hpf Urine WBC 3 0 - 5 /hpf Urine Squamous Epithelial Cells Few <5 /hpf Urine Bacteria Few H None Seen /hpf Urine Glucose Normal Normal mg/dL Assessment Intraoperative atrial fibrillation with RVR, new onset Rule out structural heart disease Hypertension Dyslipidemia Thyroid disease Obesity Plan/Recommendation (Dr. Zacarias) The patient developed intraoperative new onset atrial fibrillation with rapid ventricular rate for which she will be initiated on an amiodarone drip per pharmacy protocol. Initiate therapeutic Lovenox, ?[id number] Score ?HAS-BLED Score. Continue vasopressors for hemodynamic support and titrate down as tolerated. The patient is scheduled for a transthoracic echocardiogram to rule out structural heart disease. Follow-up on magnesium and TSH levels. Monitor ECG changes closely and notify. Thank you for allowing us to participate in this patient's care. Please call if you have any questions or concerns. Critical care time: 40 min. This medical document was created using an electronic medical record system with voice recognition software and computerized dictation system. Although this document has been carefully reviewed, there might still be some phonetic and typographical errors. Occasional wrong-word or ``sound-alike substitutions may have occurred due to the inherent limitations of voice recognition software. These areas are purely typographical due to imperfections of the software programs and do not reflect any compromise in the patient's medical care. Please read the chart carefully and recognize, using context, where these substitutions have occurred. Plan discussed with: Other Date of Service: Mar 26, 2024 Billing Provider: LUNA ZACARIAS MD Cardiology Common Codes: [id number] CARE 30-74 MIN PETRA VALDES [facility] Mar 26, 2024 11:11
[2024-03-26] MEDS: PHENYLEPHRINE IV 250 ML IV SCH (11:15)
[2024-03-26 11:17] LABS: Base Excess -3.8 mmol/L (-2.0-3.0)
[2024-03-26] MEDS: AMIODARONE BOLUS KIT 100 ML IV ONE (11:55)
[2024-03-26] MEDS: ENOXAPARIN SOD 100 MG/1 ML SYRINGE SC ONE (12:00)
[2024-03-26] MEDS: AMIODARONE 450mg/250ml AE 250 ML IV SCH ×2 (12:05→21:35)
[2024-03-26] MEDS: NOREPINEPHRINE 8 MG/250ML KIT 250 ML IV SCH (13:15)
[2024-03-26 14:26] LABS: Base Excess -2.2 mmol/L (-2.0-3.0)
[2024-03-26] MEDS ORDERED: ePHEDrine SULFATE 50 MG/ML AMP IV ONE (17:50)
--- NOTE | 2024-03-26 18:43 | DVHPN2 ---
Subjective seen in bed and going to the OR today Changes from previous H/P or p: No Changes Eyes: No Pain, No Vision change, No Conjunctivae inflammation, No Eyelid inflammation, No Other, No Redness ENT: No Ear pain, No Ear discharge, No Nose pain, No Nose discharge, No Nose congestion, No Mouth pain, No Mouth swelling, No Throat pain, No Throat swelling, No Other Cardiovascular: No Chest Pain, No Palpitations, No Orthopnea, No Paroxysmal Noc. Dyspnea, No Edema, No Lt Headedness, No Other Respiratory: No Cough, No Dry, No Shortness of breath, No SOB with excertion, No Wheezing, No Hemoptysis, No Pleuritic Pain, No Sputum, No Other Gastrointestinal: No Nausea, No Vomiting, No Abdominal Pain, No Diarrhea, No Constipation, No Melena, No Hematochezia, No Other Genitourinary: No Dysuria, No Frequency, No Incontinence, No Hematuria, No Retention, No Other Musculoskeletal: No other, No neck pain, No shoulder pain, No arm pain, No back pain, No hand pain; leg pain; No foot pain Skin: No Rash, No Lesions, No Jaundice, No Bruising, No Other Objective Vitals Vital Signs Date Time Temp Pulse Resp B/P (MAP) Pulse Ox O2 Delivery O2 Flow Rate FiO2 03/26/24 15:15 135 17 139/70 (93) 95 131/84 (100) 03/26/24 11:10 98.4 98.4 03/26/24 11:08 Mask 6.0 99 Intake/Output Intake and Output 03/26/24 05:00 Intake Total 150 ml Balance 150 ml Intake Oral 0 ml IV Total 150 ml # Voids 1 General Appearance: Alert, Oriented X3 Lungs: Clear to auscultation Cardiovascular: Regular rate Medications Current Medications Medications Dose Ordered Sig/Alvarez Route Start Time Stop Time Status Last Admin Dose Admin Levothyroxine Sodium 100 mcg QAM PO 03/26/24 07:00 Patient Own Medication 100 mg HS PO 03/25/24 22:00 Patient Own Medication 20 mg QPM PO 03/25/24 18:00 UNV Ceftriaxone Sodium 50 ml @ 100 mls/hr DAILY IV 03/26/24 10:00 Diagnostic Test (Pha) 1 strip IQ4HR 03/25/24 16:00 03/26/24 12:00 1 STRIP Insulin Human Regular IQ4HR SC 03/25/24 16:00 Dextrose 50 ml UD PRN IV 03/25/24 14:30 Sodium Chloride 1,000 ml @ 60 mls/hr [id number] IV 03/25/24 14:30 03/26/24 04:17 60 MLS/HR Al Hydrox/Mg Hydrox/Simethicone 30 ml Q6HP PRN PO 03/25/24 14:30 Docusate Sodium 100 mg BIDPRN PRN PO 03/25/24 14:30 Acetaminophen 650 mg Q6HP PRN PO 03/25/24 14:30 Acetaminophen/ Hydrocodone Bitart 1 tab Q4HP PRN PO 03/25/24 14:30 Ondansetron HCl 4 mg Q4HP PRN IV 03/25/24 14:30 Morphine Sulfate 2 mg Q4HPRN PRN IV 03/25/24 14:30 Metoprolol Tartrate 100 mg DAILY PO 03/26/24 10:00 Cancel Atorvastatin Calcium 10 mg HS PO 03/25/24 22:00 Metoprolol Tartrate 100 mg DAILY PO 03/26/24 10:00 Hold Phenylephrine HCl 250 ml @ 30 mls/hr Q8H20M IV 03/26/24 11:15 Amiodarone HCl 250 ml @ 16.667 mls/ hr Q15H IV 03/26/24 17:30 Enoxaparin Sodium 100 mg Q12HR SC 03/26/24 22:00 Norepinephrine Bitartrate 250 ml @ 3.75 mls/hr Q24H IV 03/26/24 13:15 Laboratory Results Laboratory Tests 03/26/24 05:41 Chemistry Test 03/26/24 05:41 Calcium Level 9.4 mg/dL (8.7-10.4) Magnesium Level 2.0 mg/dL (1.6-2.6) Lipid panel Test 03/26/24 05:41 Cholesterol Level 137 mg/dL (< 200) HDL Cholesterol 32 mg/dL (40-59) L Triglycerides Level 101 mg/dL (< 150) Cardiac Markers Test 03/26/24 05:41 B-Type Natriuretic Peptide 55.46 pg/mL (0-100) HgA1c, TSH Test 03/26/24 05:41 Thyroid Stimulating Hormone (TSH) 0.36 uIU/mL (0.55-4.78) L Urinalysis Test 03/25/24 11:17 Urine Color Yellow (Yellow) Urine Clarity Clear (Clear) Urine pH 5.0 (5.0-9.0) Urine Specific [place] 1.020 (1.001-1.035) Urine Protein Negative (Negative) Urine Ketones Trace (Negative) Urine Blood Negative /uL (Negative) Urine Nitrite Negative (Negative) Urine Bilirubin Negative (Negative) Urine Urobilinogen Normal mg/dL (Negative) Urine Leukocyte Esterase 2+ /uL (Negative) Urine RBC 1 /hpf (0 - 4) Urine WBC 3 /hpf (0 - 5) Urine Squamous Epithelial Cells Few /hpf (<5) Urine Bacteria Few /hpf (None Seen) H Urine Glucose Normal mg/dL (Normal) Blood Gas Results Test 03/26/24 11:04 03/26/24 14:19 Arterial Blood pH 7.389 (7.350-7.450) 7.430 (7.350-7.450) FiO2 % 100.0 21.0 Assessment/Plan Assessment/Plan Left ankle fracture HTN Hyperlipidemia hypothyroidism Continue home meds going to surgery today lovenox for dvt prophylaxis Plan discussed with: Patient Date of Service: Mar 26, 2024 Billing Provider: LUKE OSWALD MD Common Visit Codes: [id number] INP/OBS CARE(HIGH) LUKE OSWALD MD Mar 26, 2024 18:43
[2024-03-26] MEDS: ONDANSETRON HCL 4 MG/2 ML VIAL IV PRN (21:36)
[2024-03-26] MEDS: ENOXAPARIN SOD 100 MG/1 ML SYRINGE SC SCH (21:49)
[2024-03-27] VITALS (52 sets, daily range): BP systolic 84–154; BP diastolic 40–77; PULSE 71–91; RESP 8–19; TEMP 98.1–98.6; O2SAT 92–99
[2024-03-27 06:07] LABS: Basophils # (auto) 0 10 ^3/uL (0-0.2); Basophils % (auto) 0.3 % (0.0-2.0); Eosinophils # (auto) 0.1 10 ^3/uL (0-0.8); Eosinophils % (auto) 2.2 % (0.0-7.0); Hemoglobin 12.9 g/dL (12.2-16.2); Lymphocytes # (auto) 2.3 10 ^3/uL (0.4-5.4); Lymphocytes % (auto) 36.8 % (10.0-50.0); Mean Corpuscular Hemoglobin 30.7 pg (28.0-32.0); Mean Corpuscular Volume 90.3 fL (80.0-100.0); Monocytes # (auto) 0.5 10 ^3/uL (0-1.3); Monocytes % (auto) 7.8 % (0.0-12.0); Neutrophils # (auto) 3.3 10 ^3/uL (1.6-8.6); Neutrophils % (auto) 52.9 % (37.0-80.0); Nucleated Red Blood Cells % 0.1 %; Platelet Count (auto) 199 10^3/uL (140-450); Red Blood Cells 4.21 10^6/uL (4.0-5.20); Red Cell Distribution Width 13.2 % (11.8-14.3); White Blood Cell 6.2 10^3/uL (4.4-10.8)
[2024-03-27 06:40] LABS: Alanine Aminotransferase 10 U/L (7-40); Alkaline Phosphatase 59 U/L (46-116); Anion Gap 5 (5-15); BUN/Creatinine Ratio 18.2 (10.0-20.0); Blood Urea Nitrogen 14 mg/dL (9-23); Calcium 8.7 mg/dL (8.7-10.4); Carbon Dioxide 26 mmol/L (20-31); Potassium 3.6 mmol/L (3.5-5.1); Sodium 142 mmol/L (136-145)
[2024-03-27 06:41] LABS: Aspartate Aminotransferase 17 U/L (13-40)
[2024-03-27 06:43] LABS: Bilirubin, Total 0.6 mg/dL (0.2-1.0)
[2024-03-27 06:46] LABS: Albumin 3.1 g/dL (3.2-4.8); Chloride 111 mmol/L (98-107); Glucose 115 mg/dL (74-106)
--- NOTE | 2024-03-27 09:50 | DVHPN2 ---
Consult Progress Note Date Seen: Mar 27, 2024 Subjective Review of Systems: CVS:Normal, RESPIRATORY:Normal, NEURO:Normal Other Systems: Denies any cardiac symptoms Objective vital signs Vital Sign Date Time Temp Pulse Resp B/P (MAP) Pulse Ox O2 Delivery O2 Flow Rate FiO2 03/27/24 06:51 84 17 110/48 (68) 03/27/24 06:00 99 Room Air* 0 21 03/27/24 05:36 98.2 98.2 Total Intake and Output 03/26/24 03/26/24 03/27/24 15:00 23:00 07:00 Intake Total 100 ml 353.668 ml 613.336 ml Output Total 425 ml Balance 100 ml 353.668 ml 188.336 ml medications Current Medications Medications Dose Ordered Sig/Alvarez Route Start Time Stop Time Status Last Admin Dose Admin Levothyroxine Sodium 100 mcg QAM PO 03/26/24 07:00 03/27/24 06:29 100 MCG Patient Own Medication 100 mg HS PO 03/25/24 22:00 Patient Own Medication 20 mg QPM PO 03/25/24 18:00 UNV Ceftriaxone Sodium 50 ml @ 100 mls/hr DAILY IV 03/26/24 10:00 03/27/24 08:42 100 MLS/HR Diagnostic Test (Pha) 1 strip IQ4HR 03/25/24 16:00 03/27/24 08:00 1 STRIP Insulin Human Regular IQ4HR SC 03/25/24 16:00 Dextrose 50 ml UD PRN IV 03/25/24 14:30 Sodium Chloride 1,000 ml @ 60 mls/hr [id number] IV 03/25/24 14:30 03/26/24 23:43 60 MLS/HR Al Hydrox/Mg Hydrox/Simethicone 30 ml Q6HP PRN PO 03/25/24 14:30 Docusate Sodium 100 mg BIDPRN PRN PO 03/25/24 14:30 Acetaminophen 650 mg Q6HP PRN PO 03/25/24 14:30 Acetaminophen/ Hydrocodone Bitart 1 tab Q4HP PRN PO 03/25/24 14:30 Ondansetron HCl 4 mg Q4HP PRN IV 03/25/24 14:30 03/26/24 21:36 4 MG Morphine Sulfate 2 mg Q4HPRN PRN IV 03/25/24 14:30 Metoprolol Tartrate 100 mg DAILY PO 03/26/24 10:00 Cancel Atorvastatin Calcium 10 mg HS PO 03/25/24 22:00 03/26/24 21:48 10 MG Metoprolol Tartrate 100 mg DAILY PO 03/26/24 10:00 Hold Phenylephrine HCl 250 ml @ 30 mls/hr Q8H20M IV 03/26/24 11:15 Amiodarone HCl 250 ml @ 16.667 mls/ hr Q15H IV 03/26/24 17:30 03/27/24 08:42 16.667 MLS/HR Enoxaparin Sodium 100 mg Q12HR SC 03/26/24 22:00 03/27/24 08:43 100 MG Norepinephrine Bitartrate 250 ml @ 3.75 mls/hr Q24H IV 03/26/24 13:15 Examination: GENERAL:Normal, LUNGS:Normal, CVS:Normal (Successfully transitioned into a NSR, off pressor), NEURO:Normal laboratory and microbiology Laboratory Tests 03/27/24 05:43 Test 03/27/24 05:43 Range/Units Serum Glucose 115 H 74-106 mg/dL Problem List/Assessment/Plan Problem List/Assessment/Plan Preprocedural cardiovascular examination Intraoperative paroxysmal atrial fibrillation with RVR, now NSR Rule out structural heart disease Hypertension Dyslipidemia Thyroid disease Obesity Plan/Recommendation (Dr. Zacarias) The patient developed intraoperative atrial fibrillation with rapid ventricular rate for which she was initiated on an amiodarone drip. She has successfully transitioned into a NSR. Off vasopressors. Reports following up with Dr. Zacarias as outpatient as she developed transient intraoperative atrial fibrillation during a colonoscopy in the past. States undergoing an outpatient transthoracic echocardiogram, stress test, and event monitor all WNL. She was recommended metoprolol therapy. Continue therapeutic Lovenox and transition to low-dose Eliquis post-operatively, [id number] Score 4/HAS-BLED Score 1. Transition to Flecainide p.o. and metoprolol XL 25 mg (up-titrate as necessary). Replete electrolytes as necessary, K>4 and Mg>2. Monitor ECG changes closely and notify. The patient is at a moderate-risk for moderate-risk orthopedic procedure. Cardiac stable at this time. Scheduled for follow-up with Dr. Zacarias on 04/08/24 at 1045. Thank you for allowing us to participate in this patient's care. Please call if you have any questions or concerns. Critical care time: 30 min. This medical document was created using an electronic medical record system with voice recognition software and computerized dictation system. Although this document has been carefully reviewed, there might still be some phonetic and typographical errors. Occasional wrong-word or ``sound-alike substitutions may have occurred due to the inherent limitations of voice recognition software. These areas are purely typographical due to imperfections of the software programs and do not reflect any compromise in the patient's medical care. Please read the chart carefully and recognize, using context, where these substitutions have occurred. Plan discussed with: Patient, Other Date of Service: Mar 27, 2024 Billing Provider: LUNA ZACARIAS MD Cardiology Common Codes: [id number] CARE 30-74 MIN PETRA VALDES [facility] Mar 27, 2024 09:50
[2024-03-27] MEDS: POTASSIUM CHL 20 Meq TABLET PO ONE (10:00)
[2024-03-27] MEDS: FLECAINIDE ACETATE 50 MG TAB PO SCH (11:03)
[2024-03-27] MEDS: METOPROLOL SUCCINATE XL 50 MG TAB PO SCH (11:05)
--- NOTE | 2024-03-27 15:52 | DVHPN2 ---
Date of Progress Note Date of Progress Note Date of Progress Note: 03/27/24 Date of Admission Date of Admission Date of Admission: Date of Admission: Mar 25, 2024 at 14:26 Overnight Events Overnight events Overnight Events pt has been alert oriented x4, no chest pain, cleared by cardiology for srugery Allergies: Coded Allergies: Diclofenac (Verified Allergy, Unknown, 03/26/24) Home Meds Reported Medications Atorvastatin Calcium (Lipitor) 40 Mg Tab, 40 MG PO DAILY, TAB 05/26/22 Metoprolol Tartrate (LOPRESSOR TABLET) 50 Mg Tb, 50 MG PO BID, TAB 05/26/22 Lisinopril (Lisinopril) 2.5 Mg Tab, 2.5 MG PO DAILY, TAB 05/26/22 Levothyroxine Sodium (Synthroid) 25 Mcg Tab, 100 MCG PO DAILY, TAB 05/26/22 Amlodipine Besylate (Amlodipine Besylate) 2.5 Mg Tab 05/15/10 Simvastatin (Simvastatin) 5 Mg Tab 05/14/10 [Premarin] No Conflict Check 05/14/10 Levothyroxine Sodium (Levothroid) 25 Mcg Tab 05/14/10 [Lopressor] No Conflict Check 05/14/10 Current Medications Current Medications Medications (Trade) Dose Ordered Sig/Alvarez Route PRN Reason Start Time Stop Time Status Last Admin Amiodarone HCl 250 ml @ 16.667 mls/ hr Q15H IV 03/26/24 17:30 03/27/24 11:00 DC 03/27/24 08:42 Enoxaparin Sodium (Lovenox) 100 mg Q12HR SC 03/26/24 22:00 03/27/24 08:43 Flecainide Acetate (Tambocor Tablet) 50 mg Q12HR PO 03/27/24 10:00 03/27/24 11:03 Metoprolol Succinate (Toprol Xl) 25 mg DAILY PO 03/27/24 10:00 03/27/24 11:05 Physical Examination General Examination: Last Vital sign Vital Signs Date Time Temp Pulse Resp B/P (MAP) Pulse Ox O2 Delivery O2 Flow Rate FiO2 03/27/24 12:15 98.3 77 19 154/77 (102) 95 98.3 03/27/24 12:00 Room Air* 0 21 General: General: No apparent distress, appears comfortable. Cooperative. HEENT: alert oriented x4 Extremities: left ankle skin intact ROM stabilty not assessed moderate swelling tender to palpation fibula Skin: intact Neurological Examination: Neurological Examination: Mental Status: Cranial Nerves: Motor Examination: Reflexes: Sensory: Coordination: Gait: NVI Labs: Labs: Laboratory Tests Test 03/25/24 11:17 03/25/24 12:00 03/25/24 20:17 03/26/24 04:11 Range/Units Urine Color Yellow Yellow Urine Clarity Clear Clear Urine pH 5.0 5.0-9.0 Urine Specific [place] 1.020 1.001-1.035 Urine Protein Negative Negative Urine Ketones Trace Negative Urine Blood Negative Negative /uL Urine Nitrite Negative Negative Urine Bilirubin Negative Negative Urine Urobilinogen Normal Negative mg/dL Urine Leukocyte Esterase 2+ Negative /uL Urine RBC 1 0 - 4 /hpf Urine WBC 3 0 - 5 /hpf Urine Squamous Epithelial Cells Few <5 /hpf Urine Bacteria Few H None Seen /hpf Urine Glucose Normal Normal mg/dL White Blood Count 7.8 4.4-10.8 10^3/uL Red Blood Count 4.79 4.0-5.20 10^6/uL Hemoglobin 14.5 12.2-16.2 g/dL Hematocrit 44.0 36.0-46.0 % Mean Corpuscular Volume 91.9 80.0-100.0 fL Mean Corpuscular Hemoglobin 30.2 28.0-32.0 pg Mean Corpuscular Hemoglobin Concent 32.9 32.0-36.0 g/dL Red Cell Distribution Width 13.2 11.8-14.3 % Platelet Count 205 140-450 10^3/uL Mean Platelet Volume 9.2 6.9-10.8 fL Neutrophils (%) (Auto) 66.5 37.0-80.0 % Lymphocytes (%) (Auto) 26.2 10.0-50.0 % Monocytes (%) (Auto) 4.5 0.0-12.0 % Eosinophils (%) (Auto) 2.5 0.0-7.0 % Basophils (%) (Auto) 0.3 0.0-2.0 % Neutrophils # (Auto) 5.1 1.6-8.6 10 ^3/uL Lymphocytes # (Auto) 2.0 0.4-5.4 10 ^3/uL Monocytes # (Auto) 0.4 0-1.3 10 ^3/uL Eosinophils # (Auto) 0.2 0-0.8 10 ^3/uL Basophils # (Auto) 0 0-0.2 10 ^3/uL Nucleated Red Blood Cells 0.0 % Prothrombin Time 11.5 9.3-11.8 sec Prothrombin Time INR 1.09 0.9-1.15 Activated Partial Thromboplast Time 28.5 24.5-34.5 SEC Sodium Level 144 136-145 mmol/L Potassium Level 3.8 3.5-5.1 mmol/L Chloride Level 109 H 98-107 mmol/L Carbon Dioxide Level 28 20-31 mmol/L Anion Gap 7 5-15 Blood Urea Nitrogen 10 9-23 mg/dL Creatinine 0.84 0.550-1.02 mg/dL Glomerular Filtration Rate Calc 69 >90 mL/min BUN/Creatinine Ratio 11.9 10.0-20.0 Serum Glucose 129 H 74-106 mg/dL Calcium Level 10.0 8.7-10.4 mg/dL Total Bilirubin 0.6 0.2-1.0 mg/dL Aspartate Amino Transferase (AST) 27 13-40 U/L Alanine Aminotransferase (ALT) 25 7-40 U/L Alkaline Phosphatase 104 46-116 U/L Total Protein 7.5 5.7-8.2 g/dL Albumin 4.7 3.2-4.8 g/dL POC Glucose 102 121 H 70-106 mg/dl Test 03/26/24 05:41 03/26/24 08:50 03/26/24 11:04 03/26/24 11:30 Range/Units White Blood Count 7.9 4.4-10.8 10^3/uL Red Blood Count 4.06 4.0-5.20 10^6/uL Hemoglobin 12.4 12.2-16.2 g/dL Hematocrit 36.8 # 36.0-46.0 % Mean Corpuscular Volume 90.5 80.0-100.0 fL Mean Corpuscular Hemoglobin 30.6 28.0-32.0 pg Mean Corpuscular Hemoglobin Concent 33.8 32.0-36.0 g/dL Red Cell Distribution Width 13.1 11.8-14.3 % Platelet Count 182 140-450 10^3/uL Mean Platelet Volume 9.4 6.9-10.8 fL Neutrophils (%) (Auto) 62.7 37.0-80.0 % Lymphocytes (%) (Auto) 27.0 10.0-50.0 % Monocytes (%) (Auto) 6.9 0.0-12.0 % Eosinophils (%) (Auto) 2.9 0.0-7.0 % Basophils (%) (Auto) 0.5 0.0-2.0 % Neutrophils # (Auto) 5.0 1.6-8.6 10 ^3/uL Lymphocytes # (Auto) 2.1 0.4-5.4 10 ^3/uL Monocytes # (Auto) 0.5 0-1.3 10 ^3/uL Eosinophils # (Auto) 0.2 0-0.8 10 ^3/uL Basophils # (Auto) 0 0-0.2 10 ^3/uL Nucleated Red Blood Cells 0.0 % Sodium Level 145 136-145 mmol/L Potassium Level 3.9 3.5-5.1 mmol/L Chloride Level 110 H 98-107 mmol/L Carbon Dioxide Level 27 20-31 mmol/L Anion Gap 8 5-15 Blood Urea Nitrogen 13 9-23 mg/dL Creatinine 0.75 0.550-1.02 mg/dL Glomerular Filtration Rate Calc 79 >90 mL/min BUN/Creatinine Ratio 17.3 10.0-20.0 Serum Glucose 107 H 74-106 mg/dL Calcium Level 9.4 8.7-10.4 mg/dL Magnesium Level 2.0 1.6-2.6 mg/dL B-Type Natriuretic Peptide 55.46 0-100 pg/mL Triglycerides Level 101 < 150 mg/dL Cholesterol Level 137 < 200 mg/dL LDL Cholesterol 82 < 100 mg/dL HDL Cholesterol 32 L 40-59 mg/dL Thyroid Stimulating Hormone (TSH) 0.36 L 0.55-4.78 uIU/mL POC Glucose 110 H 215 H 70-106 mg/dl Blood Gas Specimen Type Arterial Blood Gas Sample Site Right radial Blood Gas Patient Temperature 37.0 Arterial Blood Date Drawn [id number] Arterial Blood pH 7.389 7.350-7.450 Arterial Blood Partial Pressure CO2 34.6 32.0-45.0 mmHg Arterial Blood Partial Pressure O2 168.2 H 83.0-108.0 mmHg Arterial Blood HCO3 20.4 L 21.0-28.0 mmol/L Arterial Blood Oxygen Saturation 99.0 H 94.0-98.0 % Arterial Blood Base Excess -3.8 L -2.0-3.0 mmol/L Arterial Blood Oxyhemoglobin 97.6 94.0-98.0 % Arterial Blood Carboxyhemoglobin 1.1 0.5-1.5 % Arterial Blood Methemoglobin 0.3 0.0-1.5 % [place]seas Test Modified Blood Gas Total Hemoglobin 14.00 12.0-16.0 g/dL Blood Gas Liter Flow 15.00 Blood Gas Modality Mask - nrb FiO2 % 100.0 Test 03/26/24 14:19 03/26/24 20:47 03/26/24 23:26 03/27/24 05:43 Range/Units Blood Gas Specimen Type Arterial Blood Gas Sample Site Right radial Blood Gas Patient Temperature 37.0 Arterial Blood Date Drawn [id number] Arterial Blood pH 7.430 7.350-7.450 Arterial Blood Partial Pressure CO2 32.4 32.0-45.0 mmHg Arterial Blood Partial Pressure O2 81.7 L 83.0-108.0 mmHg Arterial Blood HCO3 21.0 21.0-28.0 mmol/L Arterial Blood Oxygen Saturation 95.8 94.0-98.0 % Arterial Blood Base Excess -2.2 L -2.0-3.0 mmol/L Arterial Blood Oxyhemoglobin 94.4 94.0-98.0 % Arterial Blood Carboxyhemoglobin 1.3 0.5-1.5 % Arterial Blood Methemoglobin 0.2 0.0-1.5 % [place] Test Yes Blood Gas Total Hemoglobin 15.90 12.0-16.0 g/dL Blood Gas Modality Room air FiO2 % 21.0 POC Glucose 160 H 120 H 70-106 mg/dl White Blood Count 6.2 4.4-10.8 10^3/uL Red Blood Count 4.21 4.0-5.20 10^6/uL Hemoglobin 12.9 12.2-16.2 g/dL Hematocrit 38.0 36.0-46.0 % Mean Corpuscular Volume 90.3 80.0-100.0 fL Mean Corpuscular Hemoglobin 30.7 28.0-32.0 pg Mean Corpuscular Hemoglobin Concent 34.0 32.0-36.0 g/dL Red Cell Distribution Width 13.2 11.8-14.3 % Platelet Count 199 140-450 10^3/uL Mean Platelet Volume 8.9 6.9-10.8 fL Neutrophils (%) (Auto) 52.9 37.0-80.0 % Lymphocytes (%) (Auto) 36.8 10.0-50.0 % Monocytes (%) (Auto) 7.8 0.0-12.0 % Eosinophils (%) (Auto) 2.2 0.0-7.0 % Basophils (%) (Auto) 0.3 0.0-2.0 % Neutrophils # (Auto) 3.3 1.6-8.6 10 ^3/uL Lymphocytes # (Auto) 2.3 0.4-5.4 10 ^3/uL Monocytes # (Auto) 0.5 0-1.3 10 ^3/uL Eosinophils # (Auto) 0.1 0-0.8 10 ^3/uL Basophils # (Auto) 0 0-0.2 10 ^3/uL Nucleated Red Blood Cells 0.1 % Sodium Level 142 136-145 mmol/L Potassium Level 3.6 3.5-5.1 mmol/L Chloride Level 111 H 98-107 mmol/L Carbon Dioxide Level 26 20-31 mmol/L Anion Gap 5 5-15 Blood Urea Nitrogen 14 9-23 mg/dL Creatinine 0.77 0.550-1.02 mg/dL Glomerular Filtration Rate Calc 76 >90 mL/min BUN/Creatinine Ratio 18.2 10.0-20.0 Serum Glucose 115 H 74-106 mg/dL Calcium Level 8.7 8.7-10.4 mg/dL Total Bilirubin 0.6 0.2-1.0 mg/dL Aspartate Amino Transferase (AST) 17 13-40 U/L Alanine Aminotransferase (ALT) 10 7-40 U/L Alkaline Phosphatase 59 46-116 U/L Troponin I High Sensitivity 44 *H </=34 ng/L Total Protein 5.0 L 5.7-8.2 g/dL Albumin 3.1 L 3.2-4.8 g/dL Test 03/27/24 08:03 03/27/24 10:00 03/27/24 12:00 03/27/24 12:30 Range/Units POC Glucose 97 92 70-106 mg/dl Troponin I High Sensitivity 32 27 </=34 ng/L Imaging Imaging: Left ankle lateral malleolus fracture with syndesmosis widening Assessment/Plan Assessment/Plan Assessment and Plan:Breanna Amaya is a 83 year old female 03/25/24 pt had a severe hypostensive tachycardic response to spinal anesthe marisol, surgery was cancelled cardiac work up was negative for PA or ischemia, pt cleared for surgery , intermediate risk Patient scheduled for surgery, tomorrow 430P, ORIF left ankle bimalleolar fracture Plan discussed with: Patient ANNA HUTCHINS MD Mar 27, 2024 15:52
--- NOTE | 2024-03-27 16:19 | DVHPN2 ---
Subjective Seen and examined at bedside, downgraded to Tele. For Surgery tomorrow at 4PM Changes from previous H/P or p: No Changes Eyes: No Pain, No Vision change, No Conjunctivae inflammation, No Eyelid inflammation, No Other, No Redness ENT: No Ear pain, No Ear discharge, No Nose pain, No Nose discharge, No Nose congestion, No Mouth pain, No Mouth swelling, No Throat pain, No Throat swelling, No Other Cardiovascular: No Chest Pain, No Palpitations, No Orthopnea, No Paroxysmal Noc. Dyspnea, No Edema, No Lt Headedness, No Other Respiratory: No Cough, No Dry, No Shortness of breath, No SOB with excertion, No Wheezing, No Hemoptysis, No Pleuritic Pain, No Sputum, No Other Gastrointestinal: No Nausea, No Vomiting, No Abdominal Pain, No Diarrhea, No Constipation, No Melena, No Hematochezia, No Other Genitourinary: No Dysuria, No Frequency, No Incontinence, No Hematuria, No Retention, No Other Musculoskeletal: No other, No neck pain, No shoulder pain, No arm pain, No back pain, No hand pain; leg pain; No foot pain Skin: No Rash, No Lesions, No Jaundice, No Bruising, No Other Objective Vitals Vital Signs Date Time Temp Pulse Resp B/P (MAP) Pulse Ox O2 Delivery O2 Flow Rate FiO2 03/27/24 12:15 98.3 77 19 154/77 (102) 95 98.3 03/27/24 12:00 Room Air* 0 21 Intake/Output Intake and Output 03/27/24 07:00 Intake Total 1067.004 ml Output Total 425 ml Balance 642.004 ml Intake Oral 0 ml IV Total 1067.004 ml Output Urine Total 425 ml General Appearance: Alert, Oriented X3 Lungs: Clear to auscultation Cardiovascular: Regular rate Extremities: Other (left ankle swelling) Medications Current Medications Medications Dose Ordered Sig/Alvarez Route Start Time Stop Time Status Last Admin Dose Admin Levothyroxine Sodium 100 mcg QAM PO 03/26/24 07:00 03/27/24 06:29 100 MCG Patient Own Medication 20 mg QPM PO 03/25/24 18:00 UNV Ceftriaxone Sodium 50 ml @ 100 mls/hr DAILY IV 03/26/24 10:00 03/27/24 08:42 100 MLS/HR Diagnostic Test (Pha) 1 strip IQ4HR 03/25/24 16:00 03/27/24 12:31 1 STRIP Insulin Human Regular IQ4HR SC 03/25/24 16:00 Dextrose 50 ml UD PRN IV 03/25/24 14:30 Sodium Chloride 1,000 ml @ 60 mls/hr [id number] IV 03/25/24 14:30 03/26/24 23:43 60 MLS/HR Al Hydrox/Mg Hydrox/Simethicone 30 ml Q6HP PRN PO 03/25/24 14:30 Docusate Sodium 100 mg BIDPRN PRN PO 03/25/24 14:30 Acetaminophen 650 mg Q6HP PRN PO 03/25/24 14:30 Acetaminophen/ Hydrocodone Bitart 1 tab Q4HP PRN PO 03/25/24 14:30 Ondansetron HCl 4 mg Q4HP PRN IV 03/25/24 14:30 03/26/24 21:36 4 MG Morphine Sulfate 2 mg Q4HPRN PRN IV 03/25/24 14:30 Metoprolol Tartrate 100 mg DAILY PO 03/26/24 10:00 Cancel Atorvastatin Calcium 10 mg HS PO 03/25/24 22:00 03/26/24 21:48 10 MG Enoxaparin Sodium 100 mg Q12HR SC 03/26/24 22:00 03/27/24 08:43 100 MG Flecainide Acetate 50 mg Q12HR PO 03/27/24 10:00 03/27/24 11:03 50 MG Metoprolol Succinate 25 mg DAILY PO 03/27/24 10:00 03/27/24 11:05 25 MG Laboratory Results Laboratory Tests 03/27/24 05:43 Chemistry Test 03/27/24 05:43 Albumin 3.1 g/dL (3.2-4.8) L Calcium Level 8.7 mg/dL (8.7-10.4) Total Protein 5.0 g/dL (5.7-8.2) L LFT Test 03/27/24 05:43 Alanine Aminotransferase (ALT) 10 U/L (7-40) Alkaline Phosphatase 59 U/L (46-116) Aspartate Amino Transferase (AST) 17 U/L (13-40) Total Bilirubin 0.6 mg/dL (0.2-1.0) Urinalysis Test 03/25/24 11:17 Urine Color Yellow (Yellow) Urine Clarity Clear (Clear) Urine pH 5.0 (5.0-9.0) Urine Specific [place] 1.020 (1.001-1.035) Urine Protein Negative (Negative) Urine Ketones Trace (Negative) Urine Blood Negative /uL (Negative) Urine Nitrite Negative (Negative) Urine Bilirubin Negative (Negative) Urine Urobilinogen Normal mg/dL (Negative) Urine Leukocyte Esterase 2+ /uL (Negative) Urine RBC 1 /hpf (0 - 4) Urine WBC 3 /hpf (0 - 5) Urine Squamous Epithelial Cells Few /hpf (<5) Urine Bacteria Few /hpf (None Seen) H Urine Glucose Normal mg/dL (Normal) Microbiology Microbiology Date/Time Source Procedure Growth Status 03/26/24 20:24 Urine - Catheterized Urine Culture - Preliminary Resulted Assessment/Plan Assessment/Plan Left Ankle Fracture- Surgery tomorrow by Dr. Cobian Intraoperative paroxysmal atrial fibrillation with RVR, now NSR Rule out structural heart disease Hypertension- Monitor and adjust meds as needed Dyslipidemia Thyroid disease Obesity Goals of care- FULL CODE Plan discussed with: Patient My Orders Orders - LYNN CHENG MD Procedure Category Date Status Time Npo After Midnight DIET 03/27/24 Transmitted Dinner Basic Metabolic Panel LAB 03/28/24 Verified 04:00 Magnesium LAB 03/28/24 Verified 04:00 Date of Service: Mar 27, 2024 Billing Provider: LYNN CHENG MD Common Visit Codes: [id number] INP/OBS CARE(HIGH) Secondary Visit Codes: [id number] CARE PLAN 30 MINUTES LYNN CHENG MD Mar 27, 2024 16:19
[2024-03-28] VITALS (9 sets, daily range): BP systolic 98–152; BP diastolic 54–72; PULSE 55–102; RESP 16–19; TEMP 97.5–99.1; O2SAT 93–100
[2024-03-28 07:19] LABS: Anion Gap 6 (5-15); Calcium 9.1 mg/dL (8.7-10.4); Carbon Dioxide 27 mmol/L (20-31); Sodium 142 mmol/L (136-145)
[2024-03-28 07:24] LABS: Glucose 98 mg/dL (74-106)
[2024-03-28 07:25] LABS: BUN/Creatinine Ratio 13.3 (10.0-20.0); Blood Urea Nitrogen 10 mg/dL (9-23); Chloride 109 mmol/L (98-107); Magnesium 1.9 mg/dL (1.6-2.6)
--- NOTE | 2024-03-28 10:42 | DVHSR ---
APPROVED REPORT EXAM: Two-dimensional and M-mode echocardiogram with Doppler and color Doppler. Blood Pressure: 112/65 mmHg INDICATION Pre-Op RISK FACTORS Height: 67, Weight: 222 DIMENSIONS LVDd3.9 (3.8-5.7cm)LA (2D)3.8 (1.9-4.0cm)Aortic Root3.2 (2.0-3.7cm) LVDs2.8 (2.5-4.0cm)LA (MM) (1.9-4.0cm)Aortic Cusp Exc (1.5-2.0cm) EF (%) 54.0 (55-70%)Rt. Atrium3.5 (1.9-4.0cm)Asc. Aorta cm IVSd1.2 (0.7-1.1cm)RV (D) (1.8-2.4cm) PWd1.3 (0.7-1.1cm) Mitral Valve MitralMitral Stenosis E/A ratio0.02D MVAcm2 Aortic Valve Aortic ValveAortic Stenosis V11.00m/Rodrick Mean GR.5mmHg V21.43m/Rodrick Peak GR.8mmHg LVOT Diameter1.7 (1.8-2.4cm)Doppler AVA1.59cm2 Pulmonic Valve V20.99m/s Tricuspid Valve TR Velocity2.37m/s CRVO16mgCt Other Information Technically limited study due to body habitus, patient position and high heart rate. Conclusion Normal left ventricular size and dimension. Normal left ventricular systolic function estimated ejec tion fraction 55%. There is a grade 1 diastolic dysfunction. Normal right ventricular size and dimension. Normal right ventricular systolic function. Slightly i ncreased right ventricular systolic aejedado89 mm of mercury. Normal biatrial size and dimension. Normal aortic valve structure and function. Normal mitral valve structure and function. Normal tricuspid valve structure and function. The pulmonary valve is grossly normal. No pericardial effusion.
[2024-03-28] MEDS ORDERED: LIDOCAINE 1% INJ PF 5ML AMP ONE (10:57)
[2024-03-28] MEDS ORDERED: DexAMETHasone SOD PHOS 10MG/1ML VIAL INJ ONE (10:58)
[2024-03-28] MEDS ORDERED: GLYCOPYRROLATE 0.2 MG/ML 1ML VIAL ONE (13:09)
[2024-03-28] MEDS ORDERED: MIDAZOLAM HCL 2MG/2ML 2ml VIAL (1mg/ml) ONE (13:09)
[2024-03-28] MEDS ORDERED: PROPOFOL 10 MG/ML 20 ML IV ONE (13:09)
[2024-03-28] MEDS ORDERED: EPINEPHrine HCL 1 MG/1 ML AMP ONE (14:41)
[2024-03-28] MEDS ORDERED: DEXTROSE (50%) 50ML SYRG IV PRN (14:45)
[2024-03-28] MEDS: ACETAMINOPHEN IV 1000 MG/100ML (10MG/ML) IV ONE (15:00)
[2024-03-28] MEDS: ACETAMINOPHEN IV 100 ML IV ONE (15:02)
[2024-03-28] MEDS: FAMOTIDINE (10MG/ML) 2ML VL IV ONE (15:03)
[2024-03-28] MEDS: ceFAZolin 1GM/50ML 100 ML IV ONE (15:03)
[2024-03-28] MEDS: ACCU-CHEK COMFORT CURVE STRIP VI ONE (15:15)
[2024-03-28] MEDS: ONDANSETRON HCL 4 MG/2 ML VIAL IV ONE (15:15)
[2024-03-28] MEDS: HYDROmorphone HCL 2 MG/ML VL/or syr ONE (15:20)
[2024-03-28] MEDS: HYDROmorphone HCL 2 MG/ML VL/or syr IV PRN (15:27)
--- NOTE | 2024-03-28 15:59 | DVH ---
C-ARM FLUOROSCOPY: PROCEDURE: ORIF left ankle Clinical history: ORIF left ankle Technique: No images submitted for interpretation Findings/impression: FLUOROSCOPY TIME: 26.9 seconds Cumulative dose:0.7 mGy
[2024-03-28] MEDS: ACCU-CHEK COMFORT CURVE STRIP VI SCH (16:35)
[2024-03-28] MEDS: InsuLIN REG 1unit/0.01ml Soln (100units/ml) SC SCH ×2 (16:35→21:42)
--- NOTE | 2024-03-28 16:54 | DVHPN2 ---
Subjective Seen and examined at bedside, s/p Surgery. Patient needs Hospital bed. Likely DC in AM Changes from previous H/P or p: No Changes Eyes: No Pain, No Vision change, No Conjunctivae inflammation, No Eyelid inflammation, No Other, No Redness ENT: No Ear pain, No Ear discharge, No Nose pain, No Nose discharge, No Nose congestion, No Mouth pain, No Mouth swelling, No Throat pain, No Throat swelling, No Other Cardiovascular: No Chest Pain, No Palpitations, No Orthopnea, No Paroxysmal Noc. Dyspnea, No Edema, No Lt Headedness, No Other Respiratory: No Cough, No Dry, No Shortness of breath, No SOB with excertion, No Wheezing, No Hemoptysis, No Pleuritic Pain, No Sputum, No Other Gastrointestinal: No Nausea, No Vomiting, No Abdominal Pain, No Diarrhea, No Constipation, No Melena, No Hematochezia, No Other Genitourinary: No Dysuria, No Frequency, No Incontinence, No Hematuria, No Retention, No Other Musculoskeletal: No other, No neck pain, No shoulder pain, No arm pain, No back pain, No hand pain; leg pain; No foot pain Skin: No Rash, No Lesions, No Jaundice, No Bruising, No Other Objective Vitals Vital Signs Date Time Temp Pulse Resp B/P (MAP) Pulse Ox O2 Delivery O2 Flow Rate FiO2 03/28/24 15:42 61 16 116/48 (70) 97 03/28/24 15:25 Nasal Cannula 3.0 98 03/28/24 14:57 98.8 98.8 Intake/Output Intake and Output 03/28/24 07:00 Intake Total 733.334 ml Output Total 1250 ml Balance -516.666 ml Intake Oral 110 ml IV Total 623.334 ml Output Urine Total 1250 ml General Appearance: Alert, Oriented X3 Lungs: Clear to auscultation Cardiovascular: Regular rate Extremities: Other (left ankle swelling) Medications Current Medications Medications Dose Ordered Sig/Alvarez Route Start Time Stop Time Status Last Admin Dose Admin Levothyroxine Sodium 100 mcg QAM PO 03/26/24 07:00 03/27/24 06:29 100 MCG Patient Own Medication 20 mg QPM PO 03/25/24 18:00 UNV Ceftriaxone Sodium 50 ml @ 100 mls/hr DAILY IV 03/26/24 10:00 03/28/24 08:33 100 MLS/HR Dextrose 50 ml UD PRN IV 03/25/24 14:30 Cancel Al Hydrox/Mg Hydrox/Simethicone 30 ml Q6HP PRN PO 03/25/24 14:30 Docusate Sodium 100 mg BIDPRN PRN PO 03/25/24 14:30 Acetaminophen 650 mg Q6HP PRN PO 03/25/24 14:30 Acetaminophen/ Hydrocodone Bitart 1 tab Q4HP PRN PO 03/25/24 14:30 Ondansetron HCl 4 mg Q4HP PRN IV 03/25/24 14:30 03/26/24 21:36 4 MG Morphine Sulfate 2 mg Q4HPRN PRN IV 03/25/24 14:30 Metoprolol Tartrate 100 mg DAILY PO 03/26/24 10:00 Cancel Atorvastatin Calcium 10 mg HS PO 03/25/24 22:00 03/27/24 21:20 10 MG Enoxaparin Sodium 100 mg Q12HR SC 03/26/24 22:00 03/27/24 21:21 100 MG Flecainide Acetate 50 mg Q12HR PO 03/27/24 10:00 03/28/24 08:35 50 MG Metoprolol Succinate 25 mg DAILY PO 03/27/24 10:00 03/28/24 08:35 25 MG Cefazolin Sodium 50 ml @ 100 mls/hr Q8HR IV 03/28/24 22:00 UNV Diagnostic Test (Pha) 1 strip ACHS 03/28/24 17:00 03/28/24 16:35 1 STRIP Insulin Human Regular HS SC 03/28/24 22:00 Insulin Human Regular AC SC 03/28/24 17:00 Dextrose 50 ml UD PRN IV 03/28/24 14:45 Hydrocortisone Sodium Succinate 100 mg Q8H IV 03/28/24 22:00 03/29/24 14:01 Laboratory Results Laboratory Tests 03/27/24 05:43 03/28/24 06:33 Chemistry Test 03/28/24 06:33 Calcium Level 9.1 mg/dL (8.7-10.4) Magnesium Level 1.9 mg/dL (1.6-2.6) Urinalysis Test 03/25/24 11:17 Urine Color Yellow (Yellow) Urine Clarity Clear (Clear) Urine pH 5.0 (5.0-9.0) Urine Specific [place] 1.020 (1.001-1.035) Urine Protein Negative (Negative) Urine Ketones Trace (Negative) Urine Blood Negative /uL (Negative) Urine Nitrite Negative (Negative) Urine Bilirubin Negative (Negative) Urine Urobilinogen Normal mg/dL (Negative) Urine Leukocyte Esterase 2+ /uL (Negative) Urine RBC 1 /hpf (0 - 4) Urine WBC 3 /hpf (0 - 5) Urine Squamous Epithelial Cells Few /hpf (<5) Urine Bacteria Few /hpf (None Seen) H Urine Glucose Normal mg/dL (Normal) Microbiology Microbiology Date/Time Source Procedure Growth Status 03/26/24 20:24 Urine - Catheterized Urine Culture - Preliminary Resulted Assessment/Plan Assessment/Plan Left Ankle Fracture- Surgery today by Dr. Cobian Intraoperative paroxysmal atrial fibrillation with RVR, now NSR Rule out structural heart disease Hypertension- Monitor and adjust meds as needed Dyslipidemia Thyroid disease Obesity Goals of care- FULL CODE Plan discussed with: Patient My Orders Orders - LYNN CHENG MD Procedure Category Date Status Time Cardiac DIET 03/28/24 Transmitted Diet-2gna,Lofat,Lochol Dinner Glucose Blood PHA 03/28/24 In Process (Accu-Chek Comfort 17:00 Insulin R (Human) PHA 03/28/24 In Process (Insulin R) 22:00 Insulin R (Human) PHA 03/28/24 In Process (Insulin R) 17:00 Dextrose 50% Syringe PHA 03/28/24 In Process 14:45 C Arm Fluoroscopy Up XY 03/28/24 Resulted To 60min 15:30 L Ankle 2 View Xray XY 03/28/24 Taken 15:30 * Videogame [employer]ester CONS 03/28/24 Verified Consult Date of Service: Mar 28, 2024 Billing Provider: LYNN CHENG MD Common Visit Codes: [id number] INP/OBS CARE(HIGH) LYNN CHENG MD Mar 28, 2024 16:54
--- NOTE | 2024-03-28 17:02 | DVH ---
CLINICAL INDICATION: ORIF LEFT ANKLE TECHNIQUE: 4 radiographic views of the ORIF left ankle were obtained. Comparison: None FINDINGS/IMPRESSION: There are 3 images intraoperatively of an open reduction internal fixation left ankle fracture. Fluoro time 26.9 seconds Cumulative dose: 0.7 mGy
[2024-03-28] MEDS: HYDROCORTISONE SOD SUCC 100 MG/2ML INJ VIAL IV SCH (21:35)
[2024-03-28] MEDS ORDERED: ceFAZolin 1GM/50ML 50 ML IV SCH (22:00)
[2024-03-29] VITALS (8 sets, daily range): BP systolic 119–147; BP diastolic 58–74; PULSE 70–97; RESP 16–20; TEMP 96.3–98.4; O2SAT 93–100
--- NOTE | 2024-03-29 13:08 | DVHPN2 ---
Subjective Feels better Reviewed: Care Plan, H&P, Labs, Medications, Previous Orders, Radiology, Other (Consultants) Changes from previous H/P or p: No Changes Objective Vitals Vital Signs Date Time Temp Pulse Resp B/P (MAP) Pulse Ox O2 Delivery O2 Flow Rate FiO2 03/29/24 10:43 86 119/63 03/29/24 09:16 96.3 17 98 96.3 03/28/24 20:00 Room Air* 0 21 Intake/Output Intake and Output 03/29/24 07:00 Intake Total 550 ml Output Total 200 ml Balance 350 ml Intake Oral 400 ml IV Total 150 ml Output Urine Total 200 ml General Appearance: Alert, Oriented X3 HEENT: Atraumatic Lungs: Clear to auscultation Cardiovascular: Regular rate Extremities: Other (Left ankle status post surgery with surgical dressing and orthopedic casting/toes normal with sensory and motor function and temperature) Medications Current Medications Medications Dose Ordered Sig/Alvarez Route Start Time Stop Time Status Last Admin Dose Admin Levothyroxine Sodium 100 mcg QAM PO 03/26/24 07:00 03/29/24 07:00 100 MCG Patient Own Medication 20 mg QPM PO 03/25/24 18:00 UNV Ceftriaxone Sodium 50 ml @ 100 mls/hr DAILY IV 03/26/24 10:00 03/29/24 10:44 100 MLS/HR Dextrose 50 ml UD PRN IV 03/25/24 14:30 Cancel Al Hydrox/Mg Hydrox/Simethicone 30 ml Q6HP PRN PO 03/25/24 14:30 Docusate Sodium 100 mg BIDPRN PRN PO 03/25/24 14:30 Acetaminophen 650 mg Q6HP PRN PO 03/25/24 14:30 Acetaminophen/ Hydrocodone Bitart 1 tab Q4HP PRN PO 03/25/24 14:30 Ondansetron HCl 4 mg Q4HP PRN IV 03/25/24 14:30 03/26/24 21:36 4 MG Morphine Sulfate 2 mg Q4HPRN PRN IV 03/25/24 14:30 Metoprolol Tartrate 100 mg DAILY PO 03/26/24 10:00 Cancel Atorvastatin Calcium 10 mg HS PO 03/25/24 22:00 03/28/24 21:40 10 MG Enoxaparin Sodium 100 mg Q12HR SC 03/26/24 22:00 03/29/24 10:42 100 MG Flecainide Acetate 50 mg Q12HR PO 03/27/24 10:00 03/29/24 10:42 50 MG Metoprolol Succinate 25 mg DAILY PO 03/27/24 10:00 03/29/24 10:43 25 MG Cefazolin Sodium 50 ml @ 100 mls/hr Q8HR IV 03/28/24 22:00 UNV Diagnostic Test (Pha) 1 strip ACHS 03/28/24 17:00 03/29/24 11:44 1 STRIP Insulin Human Regular HS SC 03/28/24 22:00 Insulin Human Regular AC SC 03/28/24 17:00 Dextrose 50 ml UD PRN IV 03/28/24 14:45 Hydrocortisone Sodium Succinate 100 mg Q8H IV 03/28/24 22:00 03/29/24 14:01 03/29/24 07:01 100 MG Laboratory Results Laboratory Tests 03/27/24 05:43 03/28/24 06:33 Urinalysis Test 03/25/24 11:17 Urine Color Yellow (Yellow) Urine Clarity Clear (Clear) Urine pH 5.0 (5.0-9.0) Urine Specific [place] 1.020 (1.001-1.035) Urine Protein Negative (Negative) Urine Ketones Trace (Negative) Urine Blood Negative /uL (Negative) Urine Nitrite Negative (Negative) Urine Bilirubin Negative (Negative) Urine Urobilinogen Normal mg/dL (Negative) Urine Leukocyte Esterase 2+ /uL (Negative) Urine RBC 1 /hpf (0 - 4) Urine WBC 3 /hpf (0 - 5) Urine Squamous Epithelial Cells Few /hpf (<5) Urine Bacteria Few /hpf (None Seen) H Urine Glucose Normal mg/dL (Normal) Microbiology Microbiology Date/Time Source Procedure Growth Status 03/26/24 20:24 Urine - Catheterized Urine Culture - Final Complete Assessment/Plan Assessment/Plan Status post left ankle fracture RF AFib intraoperatively with RVR Hypertension Dyslipidemia Obese Hypothyroidism Plan: Continue current plan of care. Possible discharge home tomorrow Plan discussed with: Patient Date of Service: Mar 29, 2024 Billing Provider: CARMEN KATZ MD Common Visit Codes: [id number] INP/OBS CARE(HIGH) CARMEN KATZ MD Mar 29, 2024 13:08
[2024-03-30] VITALS (7 sets, daily range): BP systolic 138–153; BP diastolic 61–79; PULSE 52–79; RESP 18–20; TEMP 97.4–98.7; O2SAT 91–99
--- NOTE | 2024-03-30 09:17 | DVHDS2 ---
Discharge Summary Date of Admission Mar 25, 2024 at 14:26 Date of Discharge: Mar 30, 2024 Admitting Diagnosis Left ankle fracture Labs/Diagnostic Data: Laboratory Results Test 03/28/24 08:42 03/28/24 06:33 03/27/24 12:00 03/27/24 05:43 POC Glucose 101 mg/dl (70-106) Sodium Level 142 mmol/L (136-145) Potassium Level 4.0 mmol/L (3.5-5.1) Chloride Level 109 mmol/L (98-107) Carbon Dioxide Level 27 mmol/L (20-31) Anion Gap 6 (5-15) Blood Urea Nitrogen 10 mg/dL (9-23) Creatinine 0.75 mg/dL (0.550-1.02) Glomerular Filtration Rate Calc 79 mL/min (>90) BUN/Creatinine Ratio 13.3 (10.0-20.0) Serum Glucose 98 mg/dL (74-106) Calcium Level 9.1 mg/dL (8.7-10.4) Magnesium Level 1.9 mg/dL (1.6-2.6) Troponin I High Sensitivity 27 ng/L (</=34) White Blood Count 6.2 10^3/uL (4.4-10.8) Red Blood Count 4.21 10^6/uL (4.0-5.20) Hemoglobin 12.9 g/dL (12.2-16.2) Hematocrit 38.0 % (36.0-46.0) Mean Corpuscular Volume 90.3 fL (80.0-100.0) Mean Corpuscular Hemoglobin 30.7 pg (28.0-32.0) Mean Corpuscular Hemoglobin Concent 34.0 g/dL (32.0-36.0) Red Cell Distribution Width 13.2 % (11.8-14.3) Platelet Count 199 10^3/uL (140-450) Mean Platelet Volume 8.9 fL (6.9-10.8) Neutrophils (%) (Auto) 52.9 % (37.0-80.0) Lymphocytes (%) (Auto) 36.8 % (10.0-50.0) Monocytes (%) (Auto) 7.8 % (0.0-12.0) Eosinophils (%) (Auto) 2.2 % (0.0-7.0) Basophils (%) (Auto) 0.3 % (0.0-2.0) Neutrophils # (Auto) 3.3 10 ^3/uL (1.6-8.6) Lymphocytes # (Auto) 2.3 10 ^3/uL (0.4-5.4) Monocytes # (Auto) 0.5 10 ^3/uL (0-1.3) Eosinophils # (Auto) 0.1 10 ^3/uL (0-0.8) Basophils # (Auto) 0 10 ^3/uL (0-0.2) Nucleated Red Blood Cells 0.1 % Total Bilirubin 0.6 mg/dL (0.2-1.0) Aspartate Amino Transferase (AST) 17 U/L (13-40) Alanine Aminotransferase (ALT) 10 U/L (7-40) Alkaline Phosphatase 59 U/L (46-116) Total Protein 5.0 g/dL (5.7-8.2) Albumin 3.1 g/dL (3.2-4.8) Test 03/26/24 14:19 03/26/24 11:04 03/26/24 05:41 03/25/24 12:00 Blood Gas Specimen Type Arterial Blood Gas Sample Site Right radial Blood Gas Patient Temperature 37.0 Arterial Blood Date Drawn [id number] Arterial Blood pH 7.430 (7.350-7.450) Arterial Blood Partial Pressure CO2 32.4 mmHg (32.0-45.0) Arterial Blood Partial Pressure O2 81.7 mmHg (83.0-108.0) Arterial Blood HCO3 21.0 mmol/L (21.0-28.0) Arterial Blood Oxygen Saturation 95.8 % (94.0-98.0) Arterial Blood Base Excess -2.2 mmol/L (-2.0-3.0) Arterial Blood Oxyhemoglobin 94.4 % (94.0-98.0) Arterial Blood Carboxyhemoglobin 1.3 % (0.5-1.5) Arterial Blood Methemoglobin 0.2 % (0.0-1.5) [place] Test Yes Blood Gas Total Hemoglobin 15.90 g/dL (12.0-16.0) Blood Gas Modality Room air FiO2 % 21.0 Blood Gas Liter Flow 15.00 B-Type Natriuretic Peptide 55.46 pg/mL (0-100) Triglycerides Level 101 mg/dL (< 150) Cholesterol Level 137 mg/dL (< 200) LDL Cholesterol 82 mg/dL (< 100) HDL Cholesterol 32 mg/dL (40-59) Thyroid Stimulating Hormone (TSH) 0.36 uIU/mL (0.55-4.78) Prothrombin Time 11.5 sec (9.3-11.8) Prothrombin Time INR 1.09 (0.9-1.15) Activated Partial Thromboplast Time 28.5 SEC (24.5-34.5) Test 03/25/24 11:17 Urine Color Yellow (Yellow) Urine Clarity Clear (Clear) Urine pH 5.0 (5.0-9.0) Urine Specific [place] 1.020 (1.001-1.035) Urine Protein Negative (Negative) Urine Ketones Trace (Negative) Urine Blood Negative /uL (Negative) Urine Nitrite Negative (Negative) Urine Bilirubin Negative (Negative) Urine Urobilinogen Normal mg/dL (Negative) Urine Leukocyte Esterase 2+ /uL (Negative) Urine RBC 1 /hpf (0 - 4) Urine WBC 3 /hpf (0 - 5) Urine Squamous Epithelial Cells Few /hpf (<5) Urine Bacteria Few /hpf (None Seen) Urine Glucose Normal mg/dL (Normal) Other Laboratory Tests 03/28/24 06:33 03/27/24 05:43 Brief Hx & Hospital Course: 83-year-old lady admitted to the hospital from the emergency room with left ankle fracture. The patient developed reaction to anesthesia intraoperatively with low blood pressure and tachycardia with AFib with RVR. Cardiology consultation obtained. The patient was given vasopressors and the operatively. She was given amiodarone. She was given Lovenox. She was given also flecainide and metoprolol. Patient remained stable postoperatively. Patient was found to have also UTI for which she was given antibiotics. Consults/Reason for consult Orthopedics/status post RF of left ankle Cardiology Condition at Discharge: Good Final Diagnosis/Problems List Left hip fracture status post RF AFib with RVR intraoperatively/reaction to anesthetics Secondary Diagnosis: UTI Hypertension Dyslipidemia Hypothyroidism Obesity Discharge Disposition: Home Discharge Instruct/Medications Diet: Cardiac 2g Na,low cholest (2 gm sodium, low cholesterol) Activity: Light activity Follow Up/Referral: PCP within one week Orthopedic within two weeks Cardiology on 04/09/24 as scheduled Medications: Keflex 500 mg t.i.d. for five days Metoprolol XL 25 mg daily Flecainide 50 mg twice a day Eliquis 5 mg b.i.d. Levothyroxine 100 mg daily as before Atorvastatin 40 mg daily as before Tylenol [id number] p.r.n. for pain Resume previous home medications of lisinopril and amlodipine as before/2.5 mg each daily 40 Discharge Statement: "Patient was advised to return to the ER or call 911 if any headaches, dizziness, shortness of breath, chest pain, abdominal pain, bleeding, fevers, or worsening of medical condition. Patient was counseled about treatment plan, medications, possible side effects, patientverbalized understanding. All questions were answered to the best of my ability. This discharge took greater then 30 minutes in planning, reviewing documentation, counseling the patient, and discussing with other team members." ASSESSMENT ASSESSMENT Assessment Date of Service: Mar 30, 2024 Billing Provider: CARMEN KATZ MD Common Visit Codes: 17256-VOL/OBS DISCH DAY >30min CARMEN KATZ MD Mar 30, 2024 09:17
[2024-03-30] MEDS ORDERED: APIX5TAB PO (09:59)
[2024-03-30] MEDS ORDERED: CEPH500C PO (09:59)
[2024-03-30] MEDS ORDERED: FLE50T PO (09:59)
--- NOTE | 2024-03-31 16:02 | DVHOP2 ---
Operative Report - 2 Report Details Date: 03/28/24 Preop Diagnosis: Left bimalleolar ankle fracture Postop Diagnosis: as above Surgeon: Solomon Melissa MD Anesthesiologist: Sunil CHRISTIANSON Anesthesia: Local, Regional Implant: Flower Distal fibula nail Consent: The patient was informed of the risks and benefits of the procedure. These include but are not limited to complications of anesthesia, postoperative infection, incomplete relief of symptoms, recurrence of symptoms, damage to blood vessels, nerves and tendons, deep venous thrombosis, pulmonary embolism an d possible need for repeat surgery in the future. Estimated Blood Loss: 5 cc Name of Procedure Performed Open reduction internal fixation of left bimalleolar ankle fracture; intra-op fluoro Procedure Details Procedure Details: Risks/benefits/options and alternatives were discussed in length. Risks associated with anesthesia, infection, damage to nerves and blood vessels, and bleeding or blood clots. Problems after ankle fracture surgery include ankle joint stiffness, weakness, need for further surgery and arthritis. Possible complications after ankle fracture surgery include infection and problems with healing. PROCEDURE: After all potential complications and risks as well as risks and benefits of the above-mentioned procedure was discussed at length with the patient and family, informed consent was obtained. The lower extremity was then confirmed with the operating surgeon, the patient, the nursing staff and Department of Anesthesia. The patient was then transferred to preoperative area in the Operative Suite and placed on the operating room table in supine position. At this time, the anesthesia was performed. All bony prominences were well padded at this time. A nonsterile tourniquet was placed on the right upper thigh of the patient. This was then removed and the right lower extremity was sterilely prepped and draped in the usual sterile fashion. The right lower extremity was then elevated and exsanguinated using Esmarch and tourniquet was then placed to 250 mmHg. Next, after all bony and soft tissue landmarks were identified, a3 cm longitudinal incision was made directly over the lateral mal fracture on the right ankle. A sharp dissection was carefully taken down to the level of bone taking care to protect the neurovascular structures. Once the bone was reached, the fractured site was identified. The bony ends were then opened and divided of all hematoma as well as excess periosteum within the fracture site. For her lateral side,s he had a posterior comminution with a distal transverse fracture. With manual traction and manipulation with bone reduction clamps we were able to reduce patient fracture. Intraoperative fluoroscopy confirmed reduction. A Fibula nail was then placed. Next Fluorsocpy was used to visualize the hardware placement as well as the fracture reduction appeared to be in good anatomic position, all hardware was in good position. There was no lateralization of the joints. Attention was then directed towards the medial aspect of the ankle. Again, after all bony and soft tissue landmarks were identified, a 1 cm longitudinal incision was made directly over the medial malleolus. Again, the dissection was carefully taken down the level of the fracture site. Th Again, Fluoro scan was brought in to confirm placement of the screws. They were in good overall position and there was no lateralization of the joint. At this time, each wound was copiously irrigated and suctioned dry. The wounds were then closed using #2-0 Vicryl suture in subcutaneous fashion followed by 3-0 nylon on the skin. A sterile dressing was applied consistent with Adaptic, 4x4s, Kerlix, and Webril. An ankle splint was then placed on the right lower extremity. The patient was transferred back to the [facility] and to the Postanesthetic Care Unit. The patient tolerated the procedure well. There were no complications Condition Good Disposition Still a Patient SOLOMON MELISSA MD Mar 31, 2024 16:02
--- NOTE | 2024-04-07 10:33 | ECG ---
[facility] Test Date: 2024-03-26 Test Time: 11:16:23 Pat Name: EILEEN LINO Department: Room: 0220T B Gender: F Recreation Officer: [id number] : 1940 Requested By: PETRA VALDES Order Number: [id number] Reading MD: Rodríguez Gillette Measurements Intervals [place] Rate: 119 P: 0 TN: 0 QRS: -49 QRSD: 108 T: 55 QT: 294 QTc: 413 Interpretive Statements Demand pacemaker, interpretation is based on intrinsic rhythm Atrial fibrillation with rapid ventricular response with premature ventricular or aberrantly conducted complexes Left anterior fascicular block Nonspecific ST abnormality , probably digitalis effect Electronically Signed On 04-08-2024 15:34:52 PST by Rodríguez Gillette Please click the below link to view image of tracing.
--- NOTE | 2024-04-17 11:52 | ECG ---
[facility] Test Date: 2024-03-26 Test Time: 02:08:18 Pat Name: EILEEN LINO Department: Respiratoy Room: 0220T B Gender: F Feed Miller: MIGUEL : 1940 Requested By: PETRA VALDES Order Number: [id number] Reading MD: Adrian Schilling Measurements Intervals [place] Rate: 65 P: 68 MN: 150 QRS: -40 QRSD: 115 T: 20 QT: 422 QTc: 439 Interpretive Statements Sinus rhythm Probable left atrial enlargement Nonspecific IVCD with LAD Left ventricular hypertrophy Baseline wander in lead(s) V3 Electronically Signed On 04-17-2024 17:48:09 PST by Adrian Schilling Please click the below link to view image of tracing.
--- NOTE | 2024-04-17 11:52 | ECG ---
[facility] Test Date: 2024-03-26 Test Time: 02:09:47 Pat Name: EILEEN LINO Department: Respiratoy Room: 0220T B Gender: F Casting Finisher: MIGUEL : 1940 Requested By: PETRA VALDES Order Number: [id number] Reading MD: Adrian Schilling Measurements Intervals [place] Rate: 75 P: 67 MO: 162 QRS: -42 QRSD: 116 T: 20 QT: 422 QTc: 472 Interpretive Statements Sinus rhythm Probable left atrial enlargement Incomplete left bundle branch block Left ventricular hypertrophy Electronically Signed On 04-17-2024 17:48:21 PST by Adrian Schilling Please click the below link to view image of tracing.
== END 2024-03-30 17:42 | disposition home or self-care (01) | DRG 493 ==
LOC: ER 09:33 → EDUNIT# 14:26 → OVERFLOW 14:26 → ICU WEST 14:31 → EAST 23:38 → WEST WING 03-26 00:02 → ICU WEST 03-26 18:00 → TELE-CENTR 03-27 12:18
PROVIDERS: ADMIT Internal Medicine; ATTEND Internal Medicine
PROC: 0QSH04Z Reposition Left Tibia with Internal Fixation Device, Open Approach (ICD-10-PCS; 2024-03-28)
PROC: 0QSK04Z Reposition Left Fibula with Internal Fixation Device, Open Approach (ICD-10-PCS; principal; 2024-03-28 14:00)
DX: S82.842A Displaced bimalleolar fracture of left lower leg, initial encounter for closed fracture (principal); N39.0 Urinary tract infection, site not specified; E03.9 Hypothyroidism, unspecified; E78.5 Hyperlipidemia, unspecified; E66.9 Obesity, unspecified; I10 Essential (primary) hypertension; W18.39XA Other fall on same level, initial encounter; I48.0 Paroxysmal atrial fibrillation; Z88.8 Allergy status to other drugs, medicaments and biological substances; Z79.1 Long term (current) use of non-steroidal anti-inflammatories (NSAID); Z79.899 Other long term (current) drug therapy; Z68.34 Body mass index [BMI] 34.0-34.9, adult; Y93.89 Activity, other specified; Y92.89 Other specified places as the place of occurrence of the external cause; Y99.8 Other external cause status; Z90.710 Acquired absence of both cervix and uterus
CPT/HCPCS: 36415; 36600; 71045; 73600; 76000; 80048; 80053; 80061; 81001; 82805; 82962; 83735; 83880; 84443; 84484; 85025; 85610; 85730; 86850; 86900; 86901; 87086; 93005; 93306; 96365; 97116; 97163; 97530; G0378; J0131; J0171; J1100; J2250; J2405; J2704; J3490